=== PATIENT | female | born 1955 | race Caucasian/White ===

== ENCOUNTER → 2016-12-31 | Outpatient (CLI) | payer BC ==
[~2016-12-31] MED LIST: FLUO20CA35 PO; PRAM1TAB52 PO; PRT40 PO; WLLSR150 PO
[2016-12-31 09:56] LABS: ESTIMATED AVERAGE GLUCOSE 108 mg/dl; HA1C FLAG Normal (Normal)
[2016-12-31 10:06] LABS: ALT/SGPT 28 U/L (12-78); BLOOD UREA NITROGEN 12 mg/dl (7-18); BUN/CREATININE RATIO 13.9 (10-20); CARBON DIOXIDE 27 mmol/L (21-32); CHLORIDE 109 mmol/L (98-107); CHOLESTEROL 228 mg/dl (0-200); CREATININE 0.88 mg/dl (0.60-1.20); GLUCOSE 96 mg/dl (70-99); POTASSIUM 3.9 mmol/L (3.5-5.1); SODIUM 145 mmol/L (136-145); TRIGLYCERIDES 237 mg/dl (0-150); VERY LOW DENSITY LIPOPROT CALC 47 mg/dl
[2016-12-31 10:09] LABS: ALKALINE PHOSPHATASE 77 U/L (45-117); AST/SGOT 15 U/L (15-37); CALCIUM 8.5 mg/dl (8.5-10.1); CHOLESTEROL/HDL RATIO 3.9; HDL CHOLESTEROL 58 mg/dl; LDL CHOLESTEROL CALCULATED 123 mg/dl
== END | disposition home or self-care (01) ==
LOC: C.LAB 07:16
PROVIDERS: ATTEND Internal Medicine
DX: M15.9 Polyosteoarthritis, unspecified (principal); Z11.59 Encounter for screening for other viral diseases

== ENCOUNTER → 2017-05-19 | Outpatient (CLI) | payer BC | END | disposition home or self-care (01) | LOC: C.PAPS 13:39 | PROVIDERS: ATTEND Obstetrics & Gynecology | DX: Z01.411 Encounter for gynecological examination (general) (routine) with abnormal findings (principal); R87.610 Atypical squamous cells of undetermined significance on cytologic smear of cervix (ASC-US) ==

== ENCOUNTER 2020-04-03 22:28 | Observation (INO) ==
[2020-04-03] MEDS ORDERED: ALBUT/IPRATROP 3MG/0.5MG NEB 3 ML VIAL NEB STA (22:42)
[2020-04-03 22:59] LABS: Basophils # (auto) 0.03 K/uL (0-0.2); Basophils % (auto) 0.3 %; Eosinophils # (auto) 0.22 K/uL (0-0.5); Hematocrit (blood only) 43.2 % (37-47); Hemoglobin 14.7 g/dL (12.0-16.0); Immature Granulocytes # (auto) 0.01 K/uL (0.00-0.02); Immature Granulocytes % (auto) 0.1 %; Lymphocytes # (auto) 4.55 K/uL (1.2-3.4); Lymphocytes % (auto) 40.8 %; Mean Corpuscular Hemoglobin 31.4 pg (25-34); Mean Corpuscular Volume 92.3 fL (80-100); Mean Platelet Volume 9.6 fL (7.4-10.4); Monocytes # (auto) 0.57 K/uL (0.11-0.59); Monocytes % (auto) 5.1 %; Neutrophils # (auto) 5.78 K/uL (1.4-6.5); Neutrophils % (auto) 51.7 %; Platelet Count 330 K/uL (130-400); RDW Standard Deviation 43.8 fL (36.4-46.3); Red Blood Count 4.68 M/uL (4.2-5.4); White Blood Count 11.16 K/uL (4.8-10.8)
[2020-04-03 23:16] LABS: D Dimer < 190 ug/L FEU (0-500); Partial Thromboplastin Ratio 0.9; Partial Thromboplastin Time 24.9 Seconds (21.0-31.0); Prothrombin Time 10.3 Seconds (9.0-12.0)
[2020-04-03 23:22] LABS: Alanine Aminotransferase 31 U/L (12-78); Albumin Globulin Ratio 0.9 (0.9-2); Albumin Level 3.7 gm/dl (3.4-5.0); Alkaline Phosphatase 81 U/L (45-117); Aspartate Aminotransferase 22 U/L (15-37); BUN Creatinine Ratio 11.1 (10-20); Bilirubin,Total 0.4 mg/dl (0.2-1); Blood Urea Nitrogen 13 mg/dl (7-18); Carbon Dioxide 21 mmol/L (21-32); Chloride 109 mmol/L (98-107); Est GFR (African American) 57.2; Est GFR (Non-African American) 49.4; Glucose 103 mg/dl (70-99); Potassium 3.6 mmol/L (3.5-5.1); Sodium 141 mmol/L (136-145); Total Protein 7.7 gm/dl (6.4-8.2); Troponin I < 0.015 ng/ml (0-0.045)
[2020-04-03] MEDS ORDERED: OPTIRAY 320 125ml IV ONE (23:23)
--- NOTE | 2020-04-03 23:34 | Emergency Department Note ---
History of Present Illness General Chief complaint: Chest Pain Stated complaint: sob, chest pain Time Seen by Provider: 04/03/20 22:34 Source: patient Mode of arrival: ambulatory Limitations: no limitations History of Present Illness Maximum Pain Intensity: 8 This patient is a 64-year-old female who presents the emergency department for evaluation of shortness of breath. Patient states that she had an acute onset of shortness of breath 1.5 hours ago. She was home with her and friends and had been drinking vodka and hard cider. She states that she was sitting with friends and began feeling short of breath. She states that she does have some pain in the center of her chest and feels like she is not able to take a full breath. She has been hyperventilating. She rates her discomfort an 8/10. She denies any history of asthma, COPD or other pulmonary disease. She is a smoker. She denies any recent travel. She denies leg pain or swelling. Home Medications Home Medications Medication Instructions Recorded Confirmed Type [id number] 0.4 mg-calcium 162 1 tab PO QAM 02/12/19 04/03/20 History mg-iron 18 [id number] tablet lorazepam 0.25 - 0.5 mg PO DAILY PRN 09/05/19 04/03/20 History triamcinolone acetonide 1 appln TOP DAILY PRN 09/05/19 04/03/20 History pramipexole 0.25 mg tablet 0.25 mg PO HS #90 tab 09/11/19 04/03/20 Rx gabapentin 300 mg capsule 300 mg PO BID #60 cap 01/09/20 04/03/20 Rx bupropion HCl 150 mg 24 hr tablet, 150 mg PO BID #60 tab 02/25/20 04/03/20 Rx extended release fluoxetine 20 mg capsule 20 mg PO BID #60 cap 03/04/20 04/03/20 Rx hydrocodone 5 mg-acetaminophen 325 1 tab PO Q12 PRN #15 tab 03/05/20 04/03/20 Rx mg tablet pantoprazole 40 mg tablet,delayed 40 mg PO Q OTHER DAY #45 tab 03/26/20 04/03/20 Rx release Allergies Allergy/AdvReac Type Severity Reaction Status Date / Time latex Allergy Mild Rash Verified 04/03/20 23:40 Past Med/Surg History Medical History Adenocarcinoma, colon Anxiety Cervical radiculopathy Right C6 Chronic low back pain Depression Dermatitis, dyshidrotic Esophageal spasm Generalized osteoarthritis GERD (gastroesophageal reflux disease) History of colon cancer diagnosed 1995--Status post chemoradiation and partial colectomy History of kidney stones History of peptic ulcer age 24 History of radiation therapy Hyperlipidemia Lumbar facet joint syndrome Lumbar radiculopathy Lumbar spinal stenosis Mild L4-5 Lumbar spondylosis Restless leg syndrome Sacroiliitis Surgical History History of colonoscopy with polypectomy History of colposcopy with cervical biopsy History of esophagogastroduodenoscopy (EGD) History of lithotripsy History of partial colectomy 1995 @ [facility] 10 inches removed History of right oophorectomy History of tooth extraction History of tubal ligation Status post right foot surgery Family History Father Acquired amyotrophic lateral sclerosis Family hx colonic polyps Mother Hypertension Grandmother (Maternal) Family history of diabetes mellitus Other No family history of adverse response to anesthesia Denies family history of Ovarian cancer Prostate cancer Breast cancer Lung cancer Colorectal cancer Social History Smoking Status: Current every day smoker Age Started Using Tobacco: 20; packs per day: 0.5; Cigarettes Per Day: 10; Second Hand Exposure: Yes; Hx Alcohol Use: Yes Alcohol type: hard liquor Hx Substance Use: No Preferred Language: Lithuanian Communication Ability: Effective Visual Impairment: No Limitations Hearing Ability: Normal Loader Magazine Grinder Required: No Beliefs That Will Affect Care: None marital status: Current Living Situation: Spouse Current Living Situation Comment: Lives with and daughter current occupational status: employed 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 Safe at Home: Yes Review of Systems A total of 10 systems reviewed and were otherwise negative Physical Exam Vital Signs Vital Signs - 24 hr 04/03/20 22:29 04/03/20 22:53 04/03/20 23:47 Temperature 36.9 C Temperature Source Oral Pulse Rate 102 H Pulse Rate [Apical] 80 73 Pulse Rhythm Regular Pulse Rhythm [Apical] Regular Pulse Strength Normal Pulse Strength [Apical] Normal Respiratory Rate 26 H 22 23 Respiratory Effort / Characteristics Spontaneous Labored Short of Breath Respiratory Pattern Regular Blood Pressure 139/72 Blood Pressure [Right Arm] 125/70 136/67 Blood Pressure Mean 94 Blood Pressure Mean [Right Arm] 88 90 Blood Pressure Position Sitting Pulse Oximetry 89 L 90 96 Oxygen Delivery Method Room Air Nasal Cannula Nasal Cannula Oxygen Flow Rate 5 5 Sepsis Recent Fever Within 48 Hours No Sepsis New/Unexplained Change in Mental Status No Sepsis Action Taken by Nursing No Action Required 04/04/20 00:00 04/04/20 00:11 04/04/20 00:46 Temperature Temperature Source Pulse Rate Pulse Rate [Apical] 69 82 Pulse Rhythm Pulse Rhythm [Apical] Pulse Strength Pulse Strength [Apical] Respiratory Rate 16 18 Respiratory Effort / Characteristics Labored Non-Labored Spontaneous Respiratory Pattern Blood Pressure Blood Pressure [Right Arm] Blood Pressure Mean Blood Pressure Mean [Right Arm] Blood Pressure Position Pulse Oximetry 97 96 Oxygen Delivery Method Nasal Cannula Nasal Cannula Oxygen Flow Rate 5 5 Sepsis Recent Fever Within 48 Hours Sepsis New/Unexplained Change in Mental Status Sepsis Action Taken by Nursing 04/04/20 01:27 04/04/20 01:30 04/04/20 02:00 Temperature Temperature Source Pulse Rate Pulse Rate [Apical] 91 H 87 Pulse Rhythm Pulse Rhythm [Apical] Pulse Strength Pulse Strength [Apical] Respiratory Rate 18 18 Respiratory Effort / Characteristics Respiratory Pattern Blood Pressure Blood Pressure [Right Arm] 114/64 109/63 Blood Pressure Mean Blood Pressure Mean [Right Arm] 80 78 Blood Pressure Position Pulse Oximetry 92 88 L 95 Oxygen Delivery Method Room Air Room Air Nasal Cannula Oxygen Flow Rate 2 Sepsis Recent Fever Within 48 Hours Sepsis New/Unexplained Change in Mental Status Sepsis Action Taken by Nursing VITALS: Vitals are noted on the nurse's note and reviewed by myself. GENERAL: This is a 64-year-old female, sitting up in bed, in moderate distress, hyperventilating. SKIN: The skin was without rashes. EARS: External auditory canals clear, tympanic membranes pearly tadeo without erythema or effusion bilaterally. EYES: Pupils equal round and reactive to light and accommodation. NOSE: Patent, turbinates without inflammation or discharge. No sinus tenderness. MOUTH: Mucous membranes moist. Tonsils are not enlarged. Pharynx without erythema or exudate. NECK: Supple without nuchal rigidity. No lymphadenopathy. HEART: Regular rate and rhythm without murmurs gallops or rubs. LUNGS: Tachypneic, decreased breath sounds throughout with mild expiratory wheezes in the bases. ABDOMEN: Positive bowel sounds x 4. Soft, nontender to palpation. EXTREMITIES: No swelling or calf tenderness. NEURO: Patient was alert and oriented to person place and time. Course Reevaluation(s) Reevaluation #1: Patient was reevaluated and reported she was feeling slightly better after the DuoNeb. Her oxygen saturations remain at 90 to 92% on 5 L. Reevaluation #2: Patient was reevaluated after the hour-long DuoNeb and is feeling better. Oxygen saturations are between 90 to 93% on 5 L. Administered Medications Discontinued Medications Albuterol (Albut/Ipratrop 3mg/0.5mg Neb 3 Ml Vial) 3 ml NEB NOW STA Stop: 04/03/20 22:43 Last Admin: 04/03/20 22:53 Dose: 3 ml Documented by: [id number] Albuterol (Albut/Ipratrop 3mg/0.5mg Neb 3 Ml Vial) 12 ml NEB ONE ONE Stop: 04/03/20 23:59 Last Admin: 04/04/20 00:11 Dose: 12 ml Documented by: [id number] Ioversol (Optiray 320 125ml) 120 ml IV ONCE ONE Stop: 04/03/20 23:24 Last Admin: 04/03/20 23:23 Dose: 120 ml Documented by: [id number] Ketorolac Tromethamine (Ketorolac Tromethamine 15 Mg/Ml Vial) 15 mg IV NOW STA Stop: 04/03/20 23:40 Last Admin: 04/03/20 23:46 Dose: 15 mg Documented by: [id number] Methylprednisolone (Methylprednisolone 125 Mg/2 Ml Vial) 125 mg IV NOW STA Stop: 04/03/20 23:59 Last Admin: 04/04/20 00:19 Dose: 125 mg Documented by: [id number] Pramipexole Dihydrochloride (Pramipexole Dihydrochlo 0.25 Mg Tab) 0.25 mg PO NOW STA Stop: 04/04/20 00:11 Last Admin: 04/04/20 00:45 Dose: 0.25 mg Documented by: [id number] Medical Decision Making Differential Diagnosis Reactive airway disease, pneumonia, pneumothorax, COPD, CHF, infections, cardiac ischemia, pulmonary embolism, musculoskeletal, gastrointestinal, as well as other pathologies. Home Medications Current Medication List: was personally reviewed by [email or web address] Laboratory Data Attestation: I reviewed the patient's lab results. Result diagrams: 04/03/20 22:48 04/03/20 22:48 Lab Results 04/03/20 04/03/20 04/03/20 Range/Units 22:48 22:48 22:48 WBC 11.16 H (4.8-10.8) K/uL RBC 4.68 (4.2-5.4) M/uL Hgb 14.7 (12.0-16.0) g/dL Hct 43.2 (37-47) % MCV 92.3 (80-100) fL MCH 31.4 (25-34) pg MCHC 34.0 (32-36) g/dL RDW Std Deviation 43.8 (36.4-46.3) fL RDW Coeff of Terra 13.0 (11.5-14.5) % Plt Count 330 (130-400) K/uL MPV 9.6 (7.4-10.4) fL Immature Gran % (Auto) 0.1 % Neut % (Auto) 51.7 % Lymph % (Auto) 40.8 % Jewell % (Auto) 5.1 % Eos % (Auto) 2.0 % Baso % (Auto) 0.3 % Neut # (Auto) 5.78 (1.4-6.5) K/uL Lymph # (Auto) 4.55 H (1.2-3.4) K/uL Jewell # (Auto) 0.57 (0.11-0.59) K/uL Eos # (Auto) 0.22 (0-0.5) K/uL Baso # (Auto) 0.03 (0-0.2) K/uL Immature Gran # (Auto) 0.01 (0.00-0.02) K/uL PT 10.3 (9.0-12.0) Seconds INR 1.0 (0.9-1.1) APTT 24.9 (21.0-31.0) Seconds PTT Ratio 0.9 D-Dimer < 190 (0-500) ug/L FEU Sodium (136-145) mmol/L Potassium (3.5-5.1) mmol/L Chloride (98-107) mmol/L Carbon Dioxide (21-32) mmol/L Anion Gap (3-11) BUN (7-18) mg/dl Creatinine (0.6-1.2) mg/dl Est Cr Clr Drug Dosing Est GFR ( Amer) Est GFR (Non-Af Amer) BUN/Creatinine Ratio (10-20) Glucose (70-99) mg/dl Calcium (8.5-10.1) mg/dl Total Bilirubin (0.2-1) mg/dl AST (15-37) U/L ALT (12-78) U/L Alkaline Phosphatase (45-117) U/L Troponin I (0-0.045) ng/ml Total Protein (6.4-8.2) gm/dl Albumin (3.4-5.0) gm/dl Globulin (2.5-4.0) gm/dl Albumin/Globulin Ratio (0.9-2) Specimen Hemolysis Ethyl Alcohol mg/dL 190.3 H (0-3) mg/dl 04/03/20 Range/Units 22:48 WBC (4.8-10.8) K/uL RBC (4.2-5.4) M/uL Hgb (12.0-16.0) g/dL Hct (37-47) % MCV (80-100) fL MCH (25-34) pg MCHC (32-36) g/dL RDW Std Deviation (36.4-46.3) fL RDW Coeff of Terra (11.5-14.5) % Plt Count (130-400) K/uL MPV (7.4-10.4) fL Immature Gran % (Auto) % Neut % (Auto) % Lymph % (Auto) % Jewell % (Auto) % Eos % (Auto) % Baso % (Auto) % Neut # (Auto) (1.4-6.5) K/uL Lymph # (Auto) (1.2-3.4) K/uL Jewell # (Auto) (0.11-0.59) K/uL Eos # (Auto) (0-0.5) K/uL Baso # (Auto) (0-0.2) K/uL Immature Gran # (Auto) (0.00-0.02) K/uL PT (9.0-12.0) Seconds INR (0.9-1.1) APTT (21.0-31.0) Seconds PTT Ratio D-Dimer (0-500) ug/L FEU Sodium 141 (136-145) mmol/L Potassium 3.6 (3.5-5.1) mmol/L Chloride 109 H (98-107) mmol/L Carbon Dioxide 21 (21-32) mmol/L Anion Gap 11.0 (3-11) BUN 13 (7-18) mg/dl Creatinine 1.18 (0.6-1.2) mg/dl Est Cr Clr Drug Dosing Not Reportable Est GFR ( Amer) 57.2 Est GFR (Non-Af Amer) 49.4 BUN/Creatinine Ratio 11.1 (10-20) Glucose 103 H (70-99) mg/dl Calcium 9.0 (8.5-10.1) mg/dl Total Bilirubin 0.4 (0.2-1) mg/dl AST 22 (15-37) U/L ALT 31 (12-78) U/L Alkaline Phosphatase 81 (45-117) U/L Troponin I < 0.015 (0-0.045) ng/ml Total Protein 7.7 (6.4-8.2) gm/dl Albumin 3.7 (3.4-5.0) gm/dl Globulin 4.0 (2.5-4.0) gm/dl Albumin/Globulin Ratio 0.9 (0.9-2) Specimen Hemolysis Ethyl Alcohol mg/dL (0-3) mg/dl Imaging Data Attestation: I personally reviewed and interpreted this imaging study as follows: My Impression: CHEST 1 VIEW: Possible free air under the diaphragm vs bowel. No pulmonary consolidation or pneumothorax. Radiologist's Impression: CTA CHEST: No thoracic aortic aneurysm or dissection. No acute pulmonary embolism. Normal heart size. No pericardial effusion. Clear lungs. No acute osseous findings. CT ABDOMEN & PELVIS With Contrast: No evidence of free air. Slight hydronephrosis of the left kidney, of uncertain clinical significance. No visible obstructing radiopaque stone. Question punctate nonobstructing left kidney lower pole stone. Small left kidney cysts. Nonobstructing right kidney stone. No right-sided hydronephrosis. Liver, gallbladder, spleen, pancreas, adrenal glands are unremarkable. Appendix not identified. No bowel obstruction or inflammation. Urinary bladder and uterus are unremarkable. No acute osseous findings. Radiologist: Aundrea Javier M.D. ECG Data Attestation: I personally reviewed and interpreted this ECG as follows: Indication: + SOB/dyspnea Rate (beats per minute): 63 Rhythm: + normal sinus ECG Intervals/blocks: + Normal QRS ECG ST segments: + Normal ST segments Change: no significant change Blood Pressure Blood Pressure Findings: Elevated blood pressure Blood Pressure Disposition: elevated BP felt to be situational MDM Narrative Continuous alarm security or surveillance monitor: Order was placed for continuous alarm security or surveillance monitor. Patient was placed on the alarm security or surveillance monitor. Patient was noted to be in normal sinus rhythm at an initial rate of 85 bpm. The patient is a 64-year-old female who presents today complaining of acute onset of shortness of breath and chest pain. Patient hypoxic on arrival with oxygen saturations 87% on room air. Labs revealed minimal leukocytosis, no anemia or concerning electrolyte abnormalities. Troponin was not elevated. Chest x-ray with questionable free air under the diaphragm versus bowel. Given patient's significant shortness of breath, CT of the chest as well as abdomen/pelvis were performed with no acute findings. Patient with some improvement after DuoNeb, but saturations remained in the low 90s on 5 L via nasal cannula. [facility] who agreed to evaluate the patient for further care. Impression & Plan Shortness of breath, Hypoxia Discharge Plan Visit Data Chief Complaint: Chest Pain Stated Complaint: sob, chest pain ED Provider: Juan Manuel Diane ED Midlevel Provider: Berenice Nation Discharge Problem: Shortness of breath, Hypoxia Patient Disposition: Admitted As Inpatient Discharge Instructions Interventions: ED Discharge Assessment Last Done: 04/04/20 02:41
[2020-04-03] MEDS ORDERED: KETOROLAC TROMETHAMINE 15 MG/ML VIAL IV STA (23:39)
[2020-04-03] MEDS ORDERED: methylPREDNISolone 125 MG/2 ML VIAL IV STA (23:58)
[2020-04-03] MEDS ORDERED: ALBUT/IPRATROP 3MG/0.5MG NEB 3 ML VIAL NEB ONE (23:58)
[2020-04-04] MEDS ORDERED: PRAMIPEXOLE DIHYDROCHLO 0.25 MG TAB PO STA (00:10)
--- NOTE | 2020-04-04 02:37 | History & Physical Report ---
Date of Service April 04, 2020 Assessment & Plan (1) Shortness of breath: Acute shortness of breath- The patient will be admitted to telemetry for serial cardiac enzymes, serial EKG's, cardiac rhythm monitoring and a 2-D echocardiogram with Dopplers. Differential includes cardiac, bronchospasm, esophageal spasm, peptic ulcer disease, gastritis. Patient has been diagnosed with esophageal spasm and duodenal ulcer in the past. Potential GI effects may be exacerbated by ingestion of hard cider and alcohol as she had this evening. Present on Admission?: Yes (2) Hyperlipidemia: On no specific treatment at this time. Check a fasting lipid panel and a hemoglobin A1c Present on Admission?: Yes (3) Restless legs syndrome: Continue pramipexole 0.25 mg p.o. at bedtime Present on Admission?: Yes (4) Current smoker: Tobacco cessation discussed and recommended Present on Admission?: Yes (5) Depression: Anxiety/adult situational stress disorder/depression- Continue bupropion extended release 150 mg p.o. twice daily, fluoxetine 20 mg p.o. twice daily, gabapentin 300 mg p.o. twice daily and Lorazepam as needed Present on Admission?: Yes (6) Adult situational stress disorder: See above Present on Admission?: Yes (7) Anxiety: See above Present on Admission?: Yes (8) GERD (gastroesophageal reflux disease): GERD/history of esophageal spasm- Continue pantoprazole 40 mg every other day Present on Admission?: Yes (9) Esophageal spasm: History of Present Illness Chief Complaint: The patient presents to the emergency department with complaint of acute onset of shortness of breath Primary Care Provider: Guevara Abrams MD The patient is a 64-year-old female with a past medical history including lumbar radiculopathy, cervical radiculopathy, migraine, hyperlipidemia, restless leg syndrome, tobacco use disorder, plantar fascial fibromatosis, impaired fasting glucose, depression, generalized osteoarthritis, chronic low back pain, chronic diarrhea, adult situational stress disorder, lumbar facet syndrome, lumbar spinal stenosis, anxiety and history of colon cancer. She reports that earlier this evening, she was out on the deck of her friend's house, where she was drinking hard cider and vodka, and without when he became acutely short of breath. She felt like she was unable to take a full breath, and began to hyperventilate. She has only ever had to use an inhaler during episode of bronchitis. She has no allergies or history of asthma. She had a episode of esophageal spasm that was diagnosed upon presentation to the emergency department in the past with similar type of symptoms along with chest tightness. Allergies Allergy/AdvReac Type Severity Reaction Status Date / Time latex Allergy Mild Rash Verified 04/03/20 23:40 Home Medications Home Medications Medication Instructions Recorded Confirmed Type [id number] 0.4 mg-calcium 162 1 tab PO QAM 02/12/19 04/03/20 History mg-iron 18 [id number] tablet lorazepam 0.25 - 0.5 mg PO DAILY PRN 09/05/19 04/03/20 History triamcinolone acetonide 1 appln TOP DAILY PRN 09/05/19 04/03/20 History pramipexole 0.25 mg tablet 0.25 mg PO HS #90 tab 09/11/19 04/03/20 Rx gabapentin 300 mg capsule 300 mg PO BID #60 cap 01/09/20 04/03/20 Rx bupropion HCl 150 mg 24 hr tablet, 150 mg PO BID #60 tab 02/25/20 04/03/20 Rx extended release fluoxetine 20 mg capsule 20 mg PO BID #60 cap 03/04/20 04/03/20 Rx hydrocodone 5 mg-acetaminophen 325 1 tab PO Q12 PRN #15 tab 03/05/20 04/03/20 Rx mg tablet pantoprazole 40 mg tablet,delayed 40 mg PO Q OTHER DAY #45 tab 03/26/20 04/03/20 Rx release Past Med/Surg History Medical History Adenocarcinoma, colon Anxiety Cervical radiculopathy Right C6 Chronic low back pain Depression Dermatitis, dyshidrotic Generalized osteoarthritis History of colon cancer diagnosed 1995--Status post chemoradiation and partial colectomy History of kidney stones History of peptic ulcer age 24 History of radiation therapy Hyperlipidemia Lumbar facet joint syndrome Lumbar radiculopathy Lumbar spinal stenosis Mild L4-5 Lumbar spondylosis Restless leg syndrome Sacroiliitis Surgical History History of colonoscopy with polypectomy History of colposcopy with cervical biopsy History of esophagogastroduodenoscopy (EGD) History of lithotripsy History of partial colectomy 1995 @ [facility] 10 inches removed History of right oophorectomy History of tooth extraction History of tubal ligation Status post right foot surgery Family History Father Acquired amyotrophic lateral sclerosis Family hx colonic polyps Mother Hypertension Grandmother (Maternal) Family history of diabetes mellitus Other No family history of adverse response to anesthesia Denies family history of Ovarian cancer Prostate cancer Breast cancer Lung cancer Colorectal cancer Social History Smoking Status: Current every day smoker Age Started Using Tobacco: 20; packs per day: 0.5; Cigarettes Per Day: 10 a day; Second Hand Exposure: Yes; Hx Alcohol Use: Yes (several times/week) Alcohol type: wine and hard liquor Hx Substance Use: No Preferred Language: Bahamian Communication Ability: Effective Visual Impairment: No Limitations Hearing Ability: Normal Hide Worker Required: No Beliefs That Will Affect Care: None marital status: Current Living Situation: Spouse Current Living Situation Comment: Lives with and daughter current occupational status: employed 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 The review of systems is otherwise negative other than for that already noted above, and at least 10 systems have been reviewed. Physical Exam Physical Exam: The patient is awake, alert and oriented 3, well developed and well nourished, normocephalic and atraumatic, lying in bed and in no acute distress. HEENT--PERRL, EOMI, mucous membranes and oropharynx normal. Neck--supple. No JVD. No bruits. Thyroid normal, trachea midline, no adenopathy. Heart--normal S1 and S2. No murmurs, rubs or gallops. Lungs--clear bilaterally, no respiratory distress, no accessory muscle use. Abdomen--normal bowel sounds and soft. Nontender. Nondistended. Obese. Extremities--no cyanosis or clubbing. No edema. Dermatologic--normal skin turgor, normal color, no abnormal lymph nodes, no rash. Neurologic--cranial nerves II through XII grossly intact. Rheumatologic--normal range of motion. Psychiatric--normal affect. Results & Data Results & Data ([facility]) Vital Signs (Past 12 Hours) Vital Signs Temp Pulse Pulse Resp BP BP Pulse Ox 04/04/20 02:00 87 18 109/63 95 04/04/20 01:30 91 H 18 114/64 88 L 04/04/20 01:27 92 04/04/20 00:46 82 18 96 04/04/20 00:11 69 16 97 04/03/20 23:47 73 23 136/67 96 04/03/20 22:53 80 22 125/70 90 04/03/20 22:29 98.4 F 102 H 26 H 139/72 89 L Laboratory Results Laboratory Results WBC 11.16 K/uL (4.8-10.8) H 04/03/20 22:48 RBC 4.68 M/uL (4.2-5.4) 04/03/20 22:48 Hgb 14.7 g/dL (12.0-16.0) 04/03/20 22:48 Hct 43.2 % (37-47) 04/03/20 22:48 MCV 92.3 fL (80-100) 04/03/20 22:48 MCH 31.4 pg (25-34) 04/03/20 22:48 MCHC 34.0 g/dL (32-36) 04/03/20 22:48 RDW Std Deviation 43.8 fL (36.4-46.3) 04/03/20 22:48 RDW Coeff of Terra 13.0 % (11.5-14.5) 04/03/20 22:48 Plt Count 330 K/uL (130-400) 04/03/20 22:48 MPV 9.6 fL (7.4-10.4) 04/03/20 22:48 Immature Gran % (Auto) 0.1 % 04/03/20 22:48 Neut % (Auto) 51.7 % 04/03/20 22:48 Lymph % (Auto) 40.8 % 04/03/20 22:48 [place] % (Auto) 5.1 % 04/03/20 22:48 Eos % (Auto) 2.0 % 04/03/20 22:48 Baso % (Auto) 0.3 % 04/03/20 22:48 Neut # (Auto) 5.78 K/uL (1.4-6.5) 04/03/20 22:48 Lymph # (Auto) 4.55 K/uL (1.2-3.4) H 04/03/20 22:48 [place] # (Auto) 0.57 K/uL (0.11-0.59) 04/03/20 22:48 Eos # (Auto) 0.22 K/uL (0-0.5) 04/03/20 22:48 Baso # (Auto) 0.03 K/uL (0-0.2) 04/03/20 22:48 Immature Gran # (Auto) 0.01 K/uL (0.00-0.02) 04/03/20 22:48 PT 10.3 Seconds (9.0-12.0) 04/03/20 22:48 INR 1.0 (0.9-1.1) 04/03/20 22:48 APTT 24.9 Seconds (21.0-31.0) 04/03/20 22:48 PTT Ratio 0.9 04/03/20 22:48 D-Dimer < 190 ug/L FEU (0-500) 04/03/20 22:48 Sodium 141 mmol/L (136-145) 04/03/20 22:48 Potassium 3.6 mmol/L (3.5-5.1) 04/03/20 22:48 Chloride 109 mmol/L (98-107) H 04/03/20 22:48 Carbon Dioxide 21 mmol/L (21-32) 04/03/20 22:48 Anion Gap 11.0 (3-11) 04/03/20 22:48 BUN 13 mg/dl (7-18) 04/03/20 22:48 Creatinine 1.18 mg/dl (0.6-1.2) 04/03/20 22:48 Est Cr Clr Drug Dosing Not Reportable 04/03/20 22:48 Est GFR ( Amer) 57.2 04/03/20 22:48 Est GFR (Non-Af Amer) 49.4 04/03/20 22:48 BUN/Creatinine Ratio 11.1 (10-20) 04/03/20 22:48 Glucose 103 mg/dl (70-99) H 04/03/20 22:48 Calcium 9.0 mg/dl (8.5-10.1) 04/03/20 22:48 Total Bilirubin 0.4 mg/dl (0.2-1) 04/03/20 22:48 AST 22 U/L (15-37) 04/03/20 22:48 ALT 31 U/L (12-78) 04/03/20 22:48 Alkaline Phosphatase 81 U/L (45-117) 04/03/20 22:48 Troponin I < 0.015 ng/ml (0-0.045) 04/03/20 22:48 Total Protein 7.7 gm/dl (6.4-8.2) 04/03/20 22:48 Albumin 3.7 gm/dl (3.4-5.0) 04/03/20 22:48 Globulin 4.0 gm/dl (2.5-4.0) 04/03/20 22:48 Albumin/Globulin Ratio 0.9 (0.9-2) 04/03/20 22:48 Specimen Hemolysis 04/03/20 22:48 Ethyl Alcohol mg/dL 190.3 mg/dl (0-3) H 04/03/20 22:48 Diagnostic Findings [facility] Patient: LEON ORLANDO (Female) : 59 Status: ER Date: 04/03/20 23:37 Room #: History: SOB WITH PAIN IN CENTER OF CHEST Slices: [phone] Priors: Tech: Jonny Jones @ [phone] Exams: CTA CHEST Contrast: IV Amt: 119 ML OPTIRAY 320 Accession Numbers: [id number] Preliminary Findings Only See Final Report For Complete Findings CTA CHEST: No thoracic aortic aneurysm or dissection. No acute pulmonary embolism. Normal heart size. No pericardial effusion. Clear lungs. No acute osseous findings. Radiologist: Aundrea Javier M.D. Study ready at 23:54 and initial results transmitted at 23:57 *This report constitutes a preliminary interpretation only. Non-acute findings felt to be unrelated to the clinical presentation may not be discussed in this report. The study will be interpreted and a final report will be generated by the local Radiologist the following shift. To reach the hospital radiology department call [phone]. If a discrepancy is found between the preliminary and final interpretations of this study, please notify us via our Client Portal at [email or web address] can also fax this report with a description of the discrepancy, or include the final report, to our daytime fax number [phone].If faxing, please indicate the severity of discrepancy using one of the following categories: [ ] 1 - Agree/Informational [ ] 2 - Unlikely to Affect Management [ ] 3 - Possible Eventual Change of Management [ ] 4 - Probable Immediate Change of Management For all other patient related information, please fax us at [phone]. [facility] Patient: LEON ORLANDO (Female) : 59 Status: ER Date: 04/03/20 23:41 Room #: History: SOB WITH PAIN AT CENTER OF CHEST, R/O FREE AIR ABNORMAL CXR Slices: [phone] Priors: Ender: Karen Jonny @ [phone] Exams: CT ABDOMEN & PELVIS With Contrast Contrast: IV Amt: 119 ML OPTIRAY 320 Accession Numbers: [id number] Preliminary Findings Only See Final Report For Complete Findings CT ABDOMEN & PELVIS With Contrast: No evidence of free air. Slight hydronephrosis of the left kidney, of uncertain clinical significance. No visible obstructing radiopaque stone. Question punctate nonobstructing left kidney lower pole stone. Small left kidney cysts. Nonobstructing right kidney stone. No right-sided hydronephrosis. Liver, gallbladder, spleen, pancreas, adrenal glands are unremarkable. Appendix not identified. No bowel obstruction or inflammation. Urinary bladder and uterus are unremarkable. No acute osseous findings. Radiologist: Aundrea Javier M.D. Study ready at 23:54 and initial results transmitted at 00:01 *This report constitutes a preliminary interpretation only. Non-acute findings felt to be unrelated to the clinical presentation may not be discussed in this report. The study will be interpreted and a final report will be generated by the local Radiologist the following shift. To reach the hospital radiology department call [phone]. If a discrepancy is found between the preliminary and final interpretations of this study, please notify us via our Client Portal at [email or web address].You can also fax this report with a description of the discrepancy, or include the final report, to our daytime fax number [phone].If faxing, please indicate the severity of discrepancy using one of the following categories: [ ] 1 - Agree/Informational [ ] 2 - Unlikely to Affect Management [ ] 3 - Possible Eventual Change of Management [ ] 4 - Probable Immediate Change of Management For all other patient related information, please fax us at [phone]. [id number] Code Status & VTE Plan Code Status Full code VTE Prophylaxis Plan VTE Prophylaxis will be ordered: Yes PG Care Time/CCT Total # of Minutes Spent Total Time Spent with Patient: Total time spent is greater than 50% in coordination of care (as documented) at patient's floor/unit and/or counseling patient: Coding Level of Care Code 60276 OBS Care - Level 3 Diagnoses Shortness of breath R06.02 Hyperlipidemia E78.5 Restless legs syndrome G25.81 Current smoker F17.200 Depression F32.9 Adult situational stress disorder F43.20 Anxiety F41.9 GERD (gastroesophageal reflux disease) K21.9 Esophageal spasm K22.4
[2020-04-04] MEDS ORDERED: MAGNESIUM HYDROXIDE SUSP 30 ML UDC PO PRN (03:25)
[2020-04-04] MEDS ORDERED: ACETAMINOPHEN 325 MG TAB PO PRN (03:25)
[2020-04-04] MEDS ORDERED: ONDANSETRON INJ 2 MG/ML 2 ML VIAL IV PRN (03:25)
[2020-04-04] MEDS ORDERED: ALUMINUM/MAGNESIUM SUSP 30 ML UDC PO PRN (03:25)
[2020-04-04] MEDS ORDERED: HYDROCODONE/ACETAMOPHEN 5/325MG TAB PO PRN (03:46)
--- NOTE | 2020-04-04 06:27 | CT Scan Report ---
CT OF THE ABDOMEN AND PELVIS WITH CONTRAST CLINICAL HISTORY: shortness of breath, ?free air under diaphragm COMPARISON STUDY: CT of the abdomen and pelvis June 10, 2009. TECHNIQUE: Following IV administration of 120 mL of Optiray-320, axial images of the abdomen and pelv is were obtained from the lung bases to the proximal femurs. Images were reviewed in the axial, sagit selma, and coronal planes. IV contrast was administered without complication. Automated exposure contr ol was utilized for the study. A dose lowering technique was utilized adhering to the principles of ALARA. FINDINGS: Please note that the chest CT will be reported separately. No pneumatosis, free air or port al venous gas is present. A few renal cysts are noted. Multiple subcentimeter renal lesions are too s mall to characterize. Mild left collecting system dilatation. No ureteral calculi are identified. Not e is made of a 7 mm right renal calculus. There are no ureteral calculi. There is a punctate calculus within the lower pole of the left kidney. The liver, spleen, adrenal glands and pancreas are unremar kable. No peripancreatic or pericholecystic infiltration is noted. There is no evidence for a bowel o bstruction. The appendix is normal. There is no ascites or lymphadenopathy. Presacral infiltration is unchanged since CT of June 10, 2009. No suspicious osseous lesions are present. Bladder is mildl y distended. Major vasculature is patent. IMPRESSION: 1. No acute process within the abdomen or pelvis. No free air. 2. Presacral infiltration which is unchanged since CT of June 10, 2009. 3. Bilateral nephrolithiasis. Mild left collecting system dilatation with no ureteral calculi identif ied. ACT 112: Negative or not required by law. Electronically signed by: Serafin Singh M.D. 04/04/2020 6:26 AM
--- NOTE | 2020-04-04 06:34 | XRay Report ---
XR chest 1V portable CLINICAL HISTORY: Dyspnea COMPARISON STUDY: Chest radiograph December 29, 2017. Chest CT May 24, 2016. FINDINGS: Lung volumes are normal. Lungs are clear. There is no pneumothorax or pleural effusion. Car diac size is normal. Mediastinal contours are normal. There is no evidence for pulmonary edema. IMPRESSION: No acute cardiopulmonary findings. ACT 112: Negative or not required by law. Electronically signed by: Serafin Singh M.D. 04/04/2020 6:33 AM
[2020-04-04 06:56] LABS: Estimated Average Glucose 103 mg/dl; Hemoglobin A1C 5.2 % (4.5-5.6)
[2020-04-04 07:23] LABS: Albumin Level 3.5 gm/dl (3.4-5.0); BUN Creatinine Ratio 12.6 (10-20); Blood Urea Nitrogen 13 mg/dl (7-18); Calcium 8.8 mg/dl (8.5-10.1); Carbon Dioxide 24 mmol/L (21-32); Chloride 108 mmol/L (98-107); Est GFR (African American) 64.4; Est GFR (Non-African American) 55.6; Glucose 136 mg/dl (70-99); Potassium 4.4 mmol/L (3.5-5.1); Sodium 139 mmol/L (136-145)
[2020-04-04 07:28] LABS: Chol HDL Ratio 4; Cholesterol 241 mg/dl (0-200); HDL Cholesterol 61 mg/dl; LDL Cholesterol Calculated 143 mg/dl; Phosphorus 2.4 mg/dl (2.5-4.9); Triglycerides 185 mg/dl (0-150); Troponin I < 0.015 ng/ml (0-0.045); VLDL Cholesterol 37 mg/dl
--- NOTE | 2020-04-04 07:45 | CT Scan Report ---
CHEST CTA for PULMONARY ARTERIES CT DOSE: 1687.77 mGy.cm HISTORY: shortness of breath, hypoxia TECHNIQUE: Multiaxial CT images of the chest were performed following the intravenous administration of contrast to evaluate the pulmonary arteries. Maximal intensity projection images were also obtaine d. A dose lowering technique was utilized adhering to the principles of ALARA. COMPARISON STUDY: Chest CTA 05/25/2016. FINDINGS: Normal caliber thoracic aorta with no evidence for dissection. The heart is normal in size. No pleural or pericardial effusions. No filling defects within the pulmonary arteries to suggest pul monary embolus. The visualized liver, spleen, and adrenal glands are unremarkable. No mediastinal or hilar lymphadenopathy. Normal caliber esophagus. No suspicious lytic or blastic osseous lesions. No p neumothorax. The central airways are patent. A few scattered subpleural nodular densities, unchanged. These are likely benign. No new focal lung consolidations to suggest pneumonia. IMPRESSION: No evidence for pulmonary embolus. ACT 112: Negative or not required by law. Electronically signed by: Aaron Minaya M.D. 04/04/2020 7:44 AM
[2020-04-04] MEDS ORDERED: BuPROPion XL 150 MG TABCR PO SCH (09:00)
[2020-04-04] MEDS ORDERED: GABAPENTIN 300 MG CAP PO SCH (09:00)
[2020-04-04] MEDS ORDERED: MULTIVITAMIN TAB PO SCH (09:00)
[2020-04-04] MEDS ORDERED: FLUOXETINE HCL 20 MG CAP PO SCH (09:00)
--- NOTE | 2020-04-04 14:59 | Discharge Summary ---
Date of Service April 04, 2020 Admission HPI Per Admitting Provider The patient is a 64-year-old female with a past medical history including lumbar radiculopathy, cervical radiculopathy, migraine, hyperlipidemia, restless leg syndrome, tobacco use disorder, plantar fascial fibromatosis, impaired fasting glucose, depression, generalized osteoarthritis, chronic low back pain, chronic diarrhea, adult situational stress disorder, lumbar facet syndrome, lumbar spinal stenosis, anxiety and history of colon cancer. She reports that earlier this evening, she was out on the deck of her friend's house, where she was drinking hard cider and vodka, and without when he became acutely short of breath. She felt like she was unable to take a full breath, and began to hyperventilate. She has only ever had to use an inhaler during episode of bronchitis. She has no allergies or history of asthma. She had a episode of esophageal spasm that was diagnosed upon presentation to the emergency department in the past with similar type of symptoms along with chest tightness. Admission Exam Per Admitting Provider The patient is awake, alert and oriented 3, well developed and well nourished, normocephalic and atraumatic, lying in bed and in no acute distress. HEENT--PERRL, EOMI, mucous membranes and oropharynx normal. Neck--supple. No JVD. No bruits. Thyroid normal, trachea midline, no adenopathy. Heart--normal S1 and S2. No murmurs, rubs or gallops. Lungs--clear bilaterally, no respiratory distress, no accessory muscle use. Abdomen--normal bowel sounds and soft. Nontender. Nondistended. Obese. Extremities--no cyanosis or clubbing. No edema. Dermatologic--normal skin turgor, normal color, no abnormal lymph nodes, no rash. Neurologic--cranial nerves II through XII grossly intact. Rheumatologic--normal range of motion. Psychiatric--normal affect. Principal Diagnosis Shortness of breath Discharge Exam General: No acute distress HEENT: Normocephalic atraumatic Neck: Trachea midline, normal to visual inspection Cardiac: Palpated pulse, normal rate, normal rhythm Respiratory: She is able to take 5 deep breaths with some coughing, said this is her baseline GI: Soft nontender MSK: Moves all extremities Neuro: Alert and oriented Psych: Calm and cooperative Discharge Data Allergies Allergy/AdvReac Type Severity Reaction Status Date / Time latex Allergy Mild Rash Verified 04/03/20 23:40 Consultations 04/04/20 03:25 Consult Case Management - Discharge Planning Routine Ordered Studies 04/03/20 23:12 CT abd pelvis IV con only Urgent CT angio chest PE protocol Urgent Hospital Course (1) Shortness of breath: Acute shortness of breath- Patient presented to the hospital with acute shortness of breath, was admitted to telemetry, had serial cardiac enzymes which were all negative, serial EKGs which were all normal sinus rhythm, cardiac monitoring was negative, there was not an echo performed. This most likely represents of a previously diagnosed esophageal spasm likely complicated by hard cider and vodka, she denies symptoms similar to her previous ulcer, she will be on work-up for ulcer symptoms. Patient reports feeling significantly better on the day of discharge and has had no similar symptoms since admission. There is some question as to whether or not her smoking status is led her to begin to develop COPD. To that extent we will obtain outpatient PFTs to further characterize her lung function. Obtain outpatient PFTs Follow-up with PCP. (2) Hyperlipidemia: Patient not on specific treatment for hyperlipidemia at the time other significant risk factors including elevated BMI of 32.6, smoker, impaired fasting glucose. Fasting labs were obtained demonstratingTriglyceride of 185, cholesterol 241, LDL of 143, HDL 61. ASCVD risk score 24% if include hypertension that is uncontrolled. If we assume normotensive at baseline this risk drops to 14%. Regardless based upon her risk profile, her presenting symptoms, and her recent history it is important that she obtain a stress test. This will be arranged for her on discharge, she should follow-up with her primary care provider afterwards to discuss further therapy. Primary care provider to consider addition of statin Primary care provider to consider diagnosis of hypertension and initiation of treatment -Hemoglobin A1c 5.2. (3) Restless legs syndrome: Continued pramipexole 0.25 mg p.o. at bedtime (4) Current smoker: Counseled the patient extensively on the importance of tobacco cessation. There is a concern that she may have a component of COPD would lead to her current presentation. To that extent we will arrange for PFTs as an outpatient. -Established a semi-quit plan with the patient recommend PCP follow-up -Follow-up with outpatient PFTs (5) Depression: Continued bupropion extended release 150 mg p.o. twice daily, fluoxetine 20 mg p.o. twice daily, gabapentin 300 mg p.o. twice daily and Lorazepam as needed (6) Adult situational stress disorder: See above (7) Anxiety: See above (8) GERD (gastroesophageal reflux disease): Continued pantoprazole 40 mg every other day (9) Esophageal spasm: Patient with a history of esophageal spasm this may have also contributed to her presentation. Supportive care for now. Total Time Total Time Spent Total Time Spent (In Minutes): >30 Discharge Plan Discharge Items Patient Disposition: Home - Self-Care Reason For Visit: CHEST TIGHTNESS, SHORTNESS OF BREATH Discharge Diagnosis: Shortness of breath concerning for cardiac and or pulmonary etiology with a negative work-up Activity: Resume your previous activity Non-emergency contact: Primary Care Provider Call non-emergency contact if: you have any medication questions and your symptoms worsen Follow-up/Referrals: Guevara Abrams MD [Primary Care Provider] - Diet: Carb Consistent or DM2 Addtl Attending Provider Instructions: Care instructions: You were admitted to [facility] for treatment of shortness of breath. As we discussed your shortness of breath is likely multifactorial in nature and may be due to a number of things. To further characterize and delineate the cause of your symptoms we recommend you follow-up with your PCP in the next week and obtain outpatient studies to characterize your cardiac and lung function. We have provided the rn medicare with a prescription for the studies and request that you follow-up with the appointment for next week. Cardiac As we discussed your symptoms could be cardiac in nature, it was reassuring that during your admission, you had a negative cardiac work-up, this included serial cardiac enzymes, and serial EKGs, along with routine care. All of which were negative for any acute coronary syndrome or heart attack. Although all of the laboratory work was negative, there is a chance that you could have a component of coronary artery disease. To assess your risk we obtain fasting lipids (cholesterol) your total cholesterol was 241, your LDL or bad cholesterol was 143, your HDL or good cholesterol was 61, and your triglycerides were 185. We calculated your ASCVD risk score based upon your admission parameters and you had a 24% risk for a cardiac event in the next 10 years, if you treated your blood pressure this risk drops to 14%, if you were to stop smoking this risk drops to 7%. As you can clearly see it is in your best interest to stop smoking. Pulmonary We also discussed that your current presentation could be due to decreased lung function as result of chronic smoking and the development of COPD. To assess whether or not you have a degree of lung impairment we will be obtaining pulmonary function tests. We have provided the rn medicare with a prescription for this and she will be arranging for this test. We encourage you to obtain these test and follow-up with your PCP. If you were to stop smoking today you would significantly decrease your risk for further lung damage, and decrease the chances that you progress to a late stage of COPD. Smoking As we discussed smoking is extremely harmful to your health. It significantly compromise her cardiac function, and can affect your pulmonary function as well. To that extent the single best thing you can do for your health at this moment would be to quit smoking. The good news is we are here to help you. We discussed the numerous options and strategies to quit smoking on your day of discharge. We discussed getting rid of the cigarettes and getting rid of the lighters and any other smoking paraphernalia. We discussed medical therapy including the nicotine patch, and Chantix. Another resource to help you quit is to quit smoking helpline this can be reached at 1 800 Quit Now. You can do this and if you need additional assistance we are always here to help. Nutrition: You have previously carried the diagnosis of impaired fasting glucose, during this admission, your glucose was elevated to 136. We obtained a hemoglobin A1c which tracks her glucose over time which is 5.2 which is very near the upper limits of normal. We recommend he limit high carbohydrate foods, and fats from her diet. Recommend that you follow-up with your PCP regarding nutrition and weight management as these will likely aid in request to a healthy lifestyle. Hypertension: Throughout your admission you had high blood pressure. This is something you should follow-up with your primary care doctor about. If he determines that you do have high blood pressure you should begin antihypertensive medications. During admissions we have made no changes to your medication regimen however we recommend that you discuss the initiation of antihypertensives, statin therapy, and potentially inhaler therapy with your primary care provider. A discharge summary will be sent to your primary care physician to ensure continuity of care. Please bring this discharge summary with you to your next office appointment so that your provider can review it at that time. Follow-up appointments: - Keep all your follow-up appointments as already scheduled. If you cannot make an appointment, notify your provider. - Please call to request a follow-up appointment with your primary care physician within one week of discharge. Please let us know if you are unable to obtain an appointment Follow-up labs: - Please go to a lab nearest you and obtain the requested lab work. Please have this completed at least 3 hours before your doctor's appointment (or the day before your appointment if possible). Medications: - Your medication list has been reviewed and reconciled upon discharge to ensure accuracy and continuity of care. - You are provided with a list of all your current medications at this time. Please review this list closely and make note of any changes. - Please take all of your medications exactly as prescribed. - Tell your primary care provider if you cannot afford your medications. - Call your primary care provider if you are having any side effects or any other problems. - Call your primary care provider before taking any over the counter medications or supplements, including herbals and vitamins, because some of these may interact with your current medications and/or make your symptoms worse. Symptoms: Please call your primary care provider for symptoms including, but not limited to: fevers (temperatures greater than 100.4), chills, intractable nausea or vomiting, diarrhea, rash, shortness of breath, bleeding, pain, or if you experience any worsening of the symptoms that brought you to the hospital. For EMERGENCY and VERY SERIOUS health-related issues, such as chest pain, shortness of breath, or sudden onset of the symptoms that brought you to the hospital, you may need to call 911 or go directly to the Emergency Room It has been our privilege to take care of you during your hospital stay. And Above All Else Feel Better! Best Wishes, Adrien Viera MD PGY3 Resident, Family & Community Medicine [facility] F[facility] Residency at [facility] [address], [address] : [place] [address] Pending Studies at Discharge: No Stand-Alone Forms: [facility], Smoking Cessation Medications and DC Order Prescriptions: Continued gabapentin 300 mg capsule 300 mg PO BID Qty: 60 RF: 5 pramipexole [Mirapex] 0.25 mg tablet 0.25 mg PO HS Qty: 90 RF: 3 fluoxetine [Prozac] 20 mg capsule 20 mg PO BID Qty: 60 RF: 5 hydrocodone-acetaminophen 5-325 mg tablet 1 tab PO Q12 PRN (Reason: Pain) Qty: 15 RF: 0 bupropion HCl 150 mg tablet sustained-release 12 hr 150 mg PO BID Qty: 60 RF: 5 pantoprazole 40 mg tablet,delayed release (DR/EC) 40 mg PO Q OTHER DAY Qty: 45 RF: 3 xi-hti-ZY-Ii-Il-ccbhuen-lutein 0.4-162-18 mg tablet 1 tab PO QAM RF: 0 triamcinolone acetonide 0.1 % cream 1 appln TOP DAILY PRN (Reason: Rash) RF: 0 lorazepam 0.5 mg tablet 0.25 - 0.5 mg PO DAILY PRN (Reason: Anxiety) RF: 0 Discharge Orders: Discharge Order (Routine); Ordered 04/04/20 Ordered By: Adrien Viera Admission Data Admit Date/Time: 04/04/20 02:03 Attending Provider: Elvis Branch Admit Provider: Alli Ly Primary Care Provider: Guevara Abrams Other Providers: Alli Ly Supervising Physician Co-Signing Physician Notes I personally examined the patient and verified all [place]ud[place] points of history and exam, discussed case, and agree with decision making with Dr Viera. feeling ok now. had chest pressure and an odd sensation of not being able to get enough breath - but sort of like her breath was stuck. does note feeling fatigue over the last month -and easy fatiguability vitals noted nad heent nc at mmm breathing unlabored no accessory muscles good effort skin no rashes no pallor or icterus chest pressure/dyspnea -not MS - troponins negative -ddx ?early manifestations of COPD --> PFTs next week; ?exertional angina --> stress echo next week (safe to do as outpt - sx always go away w rest, pt feels safe with this as outpt, knows to return if sx occur and don't go away with a few minutes of rest); ?deconditioning (if PFTs normal, stress echo neg, then would assume deconditioning) is safe/stable for home counselled extensively on smoke cessation otherwise as above Resident Activity Tracking Resident Involvement: Resident Care Provided Care Provided: Adult Hospital Medicine
--- NOTE | 2020-04-04 16:44 | XCELERA ---
[id number]
--- NOTE | 2020-04-04 17:18 | Billing Data ---
Date of Service April 04, 2020 Coding Level of Care Code 69200 OBS Care - Discharge
[2020-04-04] MEDS ORDERED: BuPROPion SR 150 MG TABCR PO SCH (21:00)
[2020-04-04] MEDS ORDERED: PRAMIPEXOLE DIHYDROCHLO 0.25 MG TAB PO SCH (21:00)
[2020-04-05] MEDS ORDERED: PANTOprazole 40 MG TAB PO SCH (09:00)
--- NOTE | 2020-04-05 23:05 | Electrocardiogram Report ---
Test Reason : Blood Pressure : / mmHG Vent. Rate : 090 BPM Atrial Rate : 090 BPM P-R Int : 144 ms QRS Dur : 084 ms QT Int : 388 ms P-R-T Axes : 050 070 055 degrees QTc Int : 474 ms Poor data quality, interpretation may be adversely affected Normal sinus rhythm Nonspecific ST abnormality Abnormal ECG When compared with ECG of 25-MAY-2016 06:55, Questionable change in QRS axis T wave amplitude has increased in Anterior leads Confirmed by Francisco Wall ([id number]) on 04/05/2020 11:05:05 PM Referred By: REFERRED SELF Confirmed By:Francisco Wall
== END 2020-04-04 17:50 | disposition home or self-care (01) ==
LOC: 2E 22:28 → ED 22:28 → SUATTDRO 04-04 02:03 → 2E 04-04 02:41

== ENCOUNTER 2022-05-12 10:51 | Inpatient (IN) ==
--- NOTE | 2022-04-26 10:32 | PAT Medication Instructions ---
Medication Instructions Date of Service April 26, 2022 Home Medications Medication Instructions Recorded pramipexole 0.25 mg tablet 0.25 mg PO HS #90 tabs 08/26/21 (Mirapex) fluoxetine 20 mg capsule (Prozac) 20 mg PO BID #60 caps 11/02/21 bupropion HCl 150 mg tablet,12 hr 150 mg PO BID #60 ea 12/10/21 sustained-release gabapentin 300 mg capsule 300 mg PO TID #90 caps 12/25/21 [id number]-vbj-[id number] 0.4 mg-calcium 162 mg-iron 18 ad-xwzikec-ufcldh tablet 1 tab PO QAM cholecalciferol (vitamin D3) 25 mcg (1,000 unit) capsule 25 mcg PO HS omega-3 fatty acids [Fish Oil Concentrate] 1,000 mg PO QAM triamcinolone acetonide 0.1 % topical cream 1 applic topical QAM PRN Rash pramipexole 0.25 mg tablet (Mirapex) 0.25 mg PO HS fluoxetine 20 mg capsule (Prozac) 20 mg PO BID bupropion HCl 150 mg tablet,12 hr sustained-release 150 mg PO BID gabapentin 300 mg capsule 300 mg PO TID hydrocodone 5 mg-acetaminophen 325 mg tablet 1 tab PO Q12H PRN Pain hydrocortisone 2.5 % topical cream with perineal applicator (Anusol-HC) 1 applic MT UD PRN hemorrhoids lorazepam 0.5 mg tablet 0.25 - 0.5 mg PO UD PRN Anxiety pantoprazole 40 mg tablet,delayed release 40 mg PO Q2D Continue as directed pantoprazole 40 mg tablet,delayed release 40 mg PO Q2D STOP taking 2 weeks before surgery (or as soon as possible if surgery is within 2 weeks) [id number]-xyc-QD 0.4 mg-calcium 162 mg-iron 18 rg-tkqkbub-huazql tablet 1 tab PO QAM omega-3 fatty acids [Fish Oil Concentrate] 1,000 mg PO QAM STOP taking 24 hours before surgery triamcinolone acetonide 0.1 % topical cream 1 applic topical QAM PRN Rash DO NOT take the morning of surgery hydrocortisone 2.5 % topical cream with perineal applicator (Anusol-HC) 1 applic MT UD PRN hemorrhoids Take morning of surgery With a small sip of water, OTHERWISE NOTHING TO EAT OR DRINK AFTER MIDNIGHT: fluoxetine 20 mg capsule (Prozac) 20 mg PO BID bupropion HCl 150 mg tablet,12 hr sustained-release 150 mg PO BID gabapentin 300 mg capsule 300 mg PO TID hydrocodone 5 mg-acetaminophen 325 mg tablet 1 tab PO Q12H PRN Pain (if needed) lorazepam 0.5 mg tablet 0.25 - 0.5 mg PO UD PRN Anxiety (if needed) Take evening before surgery cholecalciferol (vitamin D3) 25 mcg (1,000 unit) capsule 25 mcg PO HS pramipexole 0.25 mg tablet (Mirapex) 0.25 mg PO HS fluoxetine 20 mg capsule (Prozac) 20 mg PO BID bupropion HCl 150 mg tablet,12 hr sustained-release 150 mg PO BID gabapentin 300 mg capsule 300 mg PO TID hydrocodone 5 mg-acetaminophen 325 mg tablet 1 tab PO Q12H PRN Pain (if needed) hydrocortisone 2.5 % topical cream with perineal applicator (Anusol-HC) 1 applic MT UD PRN hemorrhoids (if needed) lorazepam 0.5 mg tablet 0.25 - 0.5 mg PO UD PRN Anxiety (if needed) Other Notes If you have any questions please call us at [phone] or [phone] or [phone] or [phone]
--- NOTE | 2022-04-27 11:01 | Anesthesiology Consultation ---
Date of Service April 27, 2022 Assessment & Plan (1) Encounter for pre-operative examination: - Patient acceptable risk for surgery pending surgeon-ordered PCP preop evaluation ([facility]; scheduled 04/29) - COVID screening: Per assessment on 04/27: No known COVID-19 positive contacts. Travel screen negative. Pt has sore throat since 04/22 (has had similar intermittent episodes in the past r/t seasonal allergies). Covid test done at PAT visit 04/27 ([facility])- result was negative. Chart Review Chart Review: Patient seen in Pre Admission Testing Teaching & Discussion Pre-Anesthesia Teaching/Discussion Notes: Instructed NPO after midnight before surgery,except medications with 15 cc of water. Medication instructions provided according to the [facility] guidelines. History Surgery Operation Date: 05/12/22 07:45 Proposed Procedures p L4-L5 Decompression and Fusion, Possible L5-S1 Spinal Cord Monitoring - Paco Ding, Height/Weight Height: 5 ft 5 in Weight: 85.3 kg Allergies Allergy/AdvReac Type Severity Reaction Status Date / Time latex Allergy Mild Rash Verified 04/23/22 09:57 nickel Allergy Redness, Verified 04/26/22 12:32 skin irritation Medications Home Medications Medication Instructions Recorded Confirmed Last Taken [id number] 0.4 mg-calcium 162 1 tab PO QAM 02/12/19 04/23/22 04/03/20 mg-iron 18 po-[id number]-[id number] tablet cholecalciferol (vitamin D3) 25 25 mcg PO HS 05/27/21 04/23/22 Unknown mcg (1,000 unit) capsule omega-3 fatty acids [Fish Oil 1,000 mg PO QAM 05/27/21 04/23/22 Unknown Concentrate] triamcinolone acetonide 0.1 % 1 applic topical QAM PRN Rash 05/27/21 04/23/22 Unknown topical cream pramipexole 0.25 mg tablet 0.25 mg PO HS #90 tabs 08/26/21 04/23/22 Unknown (Mirapex) fluoxetine 20 mg capsule (Prozac) 20 mg PO BID #60 caps 11/02/21 04/23/22 Unknown bupropion HCl 150 mg tablet,12 hr 150 mg PO BID #60 ea 12/10/21 04/23/22 Unknown sustained-release gabapentin 300 mg capsule 300 mg PO TID #90 caps 12/25/21 04/23/22 Unknown hydrocortisone 2.5 % topical cream 1 applic [place] UD PRN hemorrhoids 04/23/22 04/23/22 Unknown with perineal applicator (Anusol-HC) lorazepam 0.5 mg tablet 0.25 - 0.5 mg PO UD PRN Anxiety 04/23/22 04/23/22 Unknown pantoprazole 40 mg tablet,delayed 40 mg PO Q2D 04/23/22 04/23/22 Unknown release hydrocodone 5 mg-acetaminophen 325 1 tab PO Q12H PRN Pain #11 tabs 04/28/22 U nknown mg tablet Past Medical History Medical History Adenocarcinoma, colon Dx 1995, s/p chemoradiation and partial colectomy Anxiety Cervical radiculopathy Right C6 Chronic low back pain Depression Dermatitis, dyshidrotic Chronic, intermittent (feet) Esophageal spasm Generalized osteoarthritis GERD (gastroesophageal reflux disease) History of COVID-19 Dx 07/2021, symptoms at time: sore throat, congestion, headache > resolved History of kidney stones History of peptic ulcer age 24 Hx of Clostridium difficile infection Several years ago Hx of seasonal allergies Hyperlipidemia Lumbar facet joint syndrome Lumbar radiculopathy Lumbar spinal stenosis Mild L4-5 Lumbar spondylosis Restless leg syndrome Sacroiliitis Sleep apnea "Mild"/no device Exercise / Class Metabolic Activity II 4-5 Yardwork/Stairs/Walk up hill (one FS (no CP, no SOB)) Past Family History Family History Father Acquired amyotrophic lateral sclerosis Family hx colonic polyps Mother Hypertension Grandmother (Maternal) Family history of diabetes mellitus Aunt Breast cancer Ovarian cancer maternal aunt Grandfather (Maternal) Myocardial infarction Other No family history of adverse response to anesthesia Denies family history of Prostate cancer Lung cancer Colorectal cancer Past Surgical History Surgical History History of colonoscopy with polypectomy History of colposcopy with cervical biopsy History of esophagogastroduodenoscopy (EGD) History of lithotripsy History of partial colectomy 1995 @ [facility] 10 inches removed History of right oophorectomy History of tooth extraction History of tubal ligation S/P epidural steroid injection Status post right foot surgery Past Anesthesia History No Hx of Anesthesia Complications and No Family Hx of Anesthesia Complications History of PONV No Hx of PONV and No Hx of Motion Sickness Social History Smoking Status: Current every day smoker tobacco type: cigarettes Smoking cigarettes per day: 10 cigs/day Do You Dip or Chew Tobacco: No Hx Alcohol Use: Yes Alcohol type: wine and hard liquor alcohol intake frequency: a few times a week Hx Substance Use: No substance use type: does not use Review of Systems Patient denies chest pain, shortness of breath, dyspnea on exertion, fever, chills, cough, wheezing, palpitations. Physical Exam Vital Signs VITALS BP 125/83 P 74 TEMP 98.5 SP02 94%RA RESP 18 PHYSICAL Full cervical extension range of motion. Full TMJ range of motion. TMD 3 finger breaths Mallampati Score 3 Dentition: several missing sides/molars, + caps (molars) Lungs: clear throughout to auscultation Cardiac: regular rate and rhythm, no murmurs noted Spine: normal Carotid arteries: negative bruit Extremities: no edema Lab Results Anesthesia Preop Results Results Anesthesia Widget: WBC 5.52 K/ul (4.8-10.8) 04/27/22 Hgb 13.1 g/dl (12.0-16.0) 04/27/22 Hct 39.3 % (34.1-44.9) 04/27/22 Plt 215 K/uL (130-400) 04/27/22 Na 139 mmol/L (136-145) 04/27/22 K 4.7 mmol/L (3.5-5.1) 04/27/22 Cl 106 mmol/L (98-107) 04/27/22 CO2 28 mmol/L (21-32) 04/27/22 BUN 16 mg/dl (6-23) 04/27/22 Creat 0.83 mg/dl (0.6-1.2) 04/27/22 Glucose Level 91 mg/dl (70-99(Fasting)) 04/27/22 PT 10.7 Seconds (9.0-12.0) 04/27/22 PTT 25.9 Seconds (21.0-31.0) 04/27/22 INR 1.0 (0.9-1.1) 04/27/22 Urine Color Yellow 04/27/22 Urine Appearance Clear (Clear) 04/27/22 Urine pH 5.5 (4.5-7.5) 04/27/22 Urine Specific [place] 1.018 (1.000-1.030) 04/27/22 Urine Protein Negative (Negative) 04/27/22 Urine Glucose (UA) Negative (Negative) 04/27/22 Urine Ketones Negative (Negative) 04/27/22 Urine Blood Negative (Negative) 04/27/22 Urine Nitrite Negative (Negative) 04/27/22 Urine Bilirubin Negative (Negative) 04/27/22 Urine Urobilinogen Negative (Negative) 04/27/22 Urine Leukocyte Esterase Negative (Negative) 04/27/22 Blood Type A Positive 04/27/22 Antibody Screen NEGATIVE 04/27/22 Testing Electrocardiogram Date: 04/27/22 NSR at 69bpm. NS TWA. Chest X-Ray Date: 04/27/22 FINDINGS: PA and lateral chest radiographs are compared to chest x-ray and chest CT dated 04/03/2020. The heart is enlarged. The pulmonary vasculature is noncongested. There is mild bibasilar atelectasis. The lungs and pleural spaces are otherwise clear. There is no pneumothorax. The skeletal structures are osteopenic. The bony thorax appears intact. IMPRESSION: Mild cardiomegaly with no active disease in the chest. Stress Test Date: 04/22/20 Type: exercise Normal stress echo. Stress ECG response was normal. Exercise capacity is below average. 100% MPHR. 5.7 METS. COVID-19 Risk Screen Screening Information COVID-19 Screen Date: 04/27/22 Exposure 21 Days Family/Household +COVID Last 21 Days: No Exposure 10 Days Any COVID Exposure Last 10 Days: No Symptoms Last 10 Days Experienced COVID Sx Last 10 Days: Yes Sx Experienced Last 10 Days: Sore Throat + COVID 0-90 Days COVID + in Last 0-90 Days: No
[~2022-05-12 10:51] MED LIST changes: +ACETAMINOPHEN 500 MG TAB PO SCH; +CeleBREX 200 MG CAP PO SCH; -FLUO20CA35 PO; +GABAPENTIN 600 MG DOSE PO SCH; +LR 15ML/HR IV SCH; -PRAM1TAB52 PO; -PRT40 PO; +SUGAMMADEX SODIUM 200 MG/2 ML VIAL IV ONE; -WLLSR150 PO; +ceFAZolin 2000MG 2,000 MG/15 ML SYR IV SCH
[2022-05-12] MEDS ORDERED: fentaNYL citrate 100 MCG/2 ML VIAL ONE (11:24)
[2022-05-12] MEDS ORDERED: ROCURONIUM BROMIDE 10 MG/ML 5 ML VIAL IV ONE (11:24)
[2022-05-12] MEDS ORDERED: ONDANSETRON INJ 2 MG/ML 2 ML VIAL ONE (11:24)
[2022-05-12] MEDS ORDERED: DEXAMETHASONE SOD INJ 4 MG/ML VIAL ONE (11:24)
[2022-05-12] MEDS ORDERED: PROPOFOL IV EMULSION 10 MG/ML 20 ML VIAL IV ONE (11:24)
[2022-05-12] MEDS ORDERED: NALOXONE HCL 0.4 MG/1 ML VIAL/CARP IV PRN ×2 (12:11→16:16)
[2022-05-12] MEDS ORDERED: ONDANSETRON INJ 2 MG/ML 2 ML VIAL IV PRN ×2 (12:11→16:16)
[2022-05-12] MEDS ORDERED: HYDROmorphone INJ 1 MG/ML SYRINGE IV PRN (12:11)
[2022-05-12] MEDS ORDERED: PROMETHAZINE HCL 12.5 MG in SODIUM CHLORIDE 0.9% 50 ML IV PRN ×2 (12:11→16:16)
[2022-05-12] MEDS ORDERED: LABETALOL HCL IV 5 MG/ML 20ML IV PRN (12:11)
[2022-05-12] MEDS ORDERED: ATROPINE SULFATE 0.1 MG/ML 10ML SYR IV PRN (12:11)
[2022-05-12] MEDS ORDERED: ePHEDrine sulfate 50 MG/ML AMP IV PRN (12:11)
[2022-05-12] MEDS ORDERED: FLUMAZENIL 0.1 MG/1 ML 10 ML VIAL IV PRN (12:11)
--- NOTE | 2022-05-12 12:24 | History & Physical Bridge Note ---
Date of Service May 12, 2022 History & Physical Bridge Note I have examined the patient, reviewed the History & Physical and in the interval since the performance of the History & Physical I have noted the following changes of clinical significance: no changes noted
--- NOTE | 2022-05-12 12:25 | History & Physical Report ---
Date of Service May 12, 2022 Assessment & Plan (1) Neurogenic claudication due to lumbar spinal stenosis: Plan: L4-L5 decompression and fusion, possible L5-S1 History of Present Illness Chief Complaint: Back and bilateral leg pain Primary Care Provider: Guevara Abrams MD This is a 66-year-old female who presents with chronic persistent back and bilateral leg pain. Failing course of nonoperative care she is here for surgical invention. Allergies Allergy/AdvReac Type Severity Reaction Status Date / Time latex Allergy Mild Rash Verified 05/12/22 11:17 nickel Allergy Redness, Verified 05/12/22 11:17 skin irritation Home Medications Medication Instructions Recorded Confirmed Type [id number] 0.4 mg-calcium 162 1 tab PO QAM 02/12/19 05/12/22 History mg-iron 18 mo-doqfhig-cbxjha tablet cholecalciferol (vitamin D3) 25 25 mcg PO HS 05/27/21 05/12/22 History mcg (1,000 unit) capsule omega-3 fatty acids [Fish Oil 1,000 mg PO QAM 05/27/21 05/12/22 History Concentrate] triamcinolone acetonide 0.1 % 1 applic topical QAM PRN Rash 05/27/21 05/12/22 History topical cream pramipexole 0.25 mg tablet 0.25 mg PO HS #90 tabs 08/26/21 05/12/22 Rx (Mirapex) fluoxetine 20 mg capsule (Prozac) 20 mg PO BID #60 caps 11/02/21 05/12/22 Rx bupropion HCl 150 mg tablet,12 hr 150 mg PO BID #60 ea 12/10/21 05/12/22 Rx sustained-release gabapentin 300 mg capsule 300 mg PO TID #90 caps 12/25/21 05/12/22 Rx hydrocortisone 2.5 % topical cream 1 applic [place] UD PRN hemorrhoids 04/23/22 05/12/22 History with perineal applicator (Anusol-HC) lorazepam 0.5 mg tablet 0.25 - 0.5 mg PO UD PRN Anxiety 04/23/22 05/12/22 History pantoprazole 40 mg tablet,delayed 40 mg PO Q2D 04/23/22 05/12/22 History release hydrocodone 5 mg-acetaminophen 325 1 tab PO Q12H PRN Pain #11 tabs 04/28/22 05/12/22 Rx mg tablet amoxicillin 875 mg-potassium 1 tab PO BID 7 days #14 tabs 04/29/22 04/29/22 Rx clavulanate 125 mg tablet Past Med/Surg History Medical History Adenocarcinoma, colon Dx 1995, s/p chemoradiation and partial colectomy Anxiety Cervical radiculopathy Right C6 Chronic low back pain Depression Dermatitis, dyshidrotic Chronic, intermittent (feet) Esophageal spasm Generalized osteoarthritis GERD (gastroesophageal reflux disease) History of COVID-19 Dx 07/2021, symptoms at time: sore throat, congestion, headache > resolved History of kidney stones History of peptic ulcer age 24 Hx of Clostridium difficile infection Several years ago Hx of seasonal allergies Hyperlipidemia Lumbar facet joint syndrome Lumbar radiculopathy Lumbar spinal stenosis Mild L4-5 Lumbar spondylosis Restless leg syndrome Sacroiliitis Sleep apnea "Mild"/no device Surgical History History of colonoscopy with polypectomy History of colposcopy with cervical biopsy History of esophagogastroduodenoscopy (EGD) History of lithotripsy History of partial colectomy 1995 @ [facility] 10 inches removed History of right oophorectomy History of tooth extraction History of tubal ligation S/P epidural steroid injection Status post right foot surgery Family History Father Acquired amyotrophic lateral sclerosis Family hx colonic polyps Mother Hypertension Grandmother (Maternal) Family history of diabetes mellitus Aunt Breast cancer Ovarian cancer maternal aunt Grandfather (Maternal) Myocardial infarction Other No family history of adverse response to anesthesia Denies family history of Prostate cancer Lung cancer Colorectal cancer Social History Smoking Status: Current every day smoker Age Started Using Tobacco: 20; packs per day: 0.5; Cigarettes Per Day: 5-8; Second Hand Exposure: Yes; Do You Dip or Chew Tobacco: No; Tobacco Cessation Education Requested by Patient: No Hx Alcohol Use: Yes Alcohol type: wine and hard liquor Alcohol Intake Frequency: 2-3 x/Week Hx Substance Use: No Preferred Language: Sami Communication Ability: Effective Visual Impairment: Limited Hearing Ability: Normal 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 Required: No Beliefs That Will Affect Care: None marital status: Current Living Situation: Spouse and Family Current Living Situation Comment: Lives with and daughter current occupational status: employed 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 How many Children do You have: 2 Other Information That Helps Us Care for You: No Feels Safe at Home: Yes Safety Concerns: Feels Safe At This Time Childhood Exposure to Second-Hand Smoke: No caffeine: Yes (1 cup of coffee daily ) Dental Care, Regularly: No Physical Activity Frequency: Does not Exercise Physical Activity Frequency Comment: 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
[2022-05-12] MEDS ORDERED: BUPIVACAINE/EPINEPHRINE 0.25% 1:200,000 30 ML VIAL ONE (12:35)
[2022-05-12] MEDS ORDERED: ceFAZolin 330 MG/ML 1 GM VIAL ONE (12:36)
[2022-05-12] MEDS ORDERED: FLOSEAL HEMOSTATIC MATRIX 10ML TOP ONE (13:52)
[2022-05-12] MEDS ORDERED: HYDROmorphone INJ 2 MG/ML SYR/VIAL ONE (14:47)
--- NOTE | 2022-05-12 14:58 | Operative Report ---
Post Operative Report Pre & Post Diagnosis Operation Date: 05/12/22 12:15 Pre-Op Diagnosis: Neurogenic Claudication due to Lumbar Spinal Stenosis Spondylolisthesis L4-L5 Post-Op Diagnosis: Same I identified the patient and participated in the time-out.: Yes Procedure Operation Date: 05/12/22 12:15 Actual Procedures #1 lumbar decompression bilateral medial facetectomies and foraminotomies L3-L4 L4-5. #2 posterior spinal fusion L4-5 #3 placement posterior instrumentation L4-5 per #4 interbody fusion L4-5 per #5 placement of Spira 13 x 26 mm L4-L5. #6 placement locally harvested morselized autograft in the posterior gutters. #7 placement I factor combined with V toss in the interbody space and posterior gutters. Surgeon Paco Ding, DO Refrigeration Person Krystyna Brandt Estimated Blood Loss 230 Findings See Below Patient is 5 foot 5 weighing over 84 kg with a BMI in excess of 31. Patient's body habitus did contribute to significant technical difficulties requiring her deepest retractors longus instruments in order to perform her procedure. This had at least 50% increased operative time. Specimens None Indications This is a 66-year-old female who presents above-mentioned diagnosis after failing course of nonoperative care is here for surgical invention. Description of Procedure Patient was met with identified informed consent obtained. Patient was then taken to the operative suite underwent a patient placed in a prone position on the Corwin table atop the Alvaro frame. All bony prominences well-padded eyes inspected to ensure no external pressure placed upon them. This point the lumbar spine was prepped and draped in normal sterile fashion. Sharp dissection with the assistance of Bovie cautery was performed down to and exposing the lamina and transverse processes of L4-L5. From caudal cephalad fashion complete laminectomy of L4 partial laminectomy of L3 was performed including bilateral medial facetectomies and foraminotomies addressing severe spinal stenosis. Pedicle screws were then placed at L4-5 bilaterally with assistance of fluoroscopy and appropriately sized mahsa placed. Bilateral transforaminal approach on the left pleat discectomy of L4-L5 was performed endplates curetted to subcortical bleeding bone and a 13 x 26 mm spiral cage with I factor tapped the position. The rods were then locked in final position bilaterally. The transverse processes of L4-L5 burred to subcortically bone. I factor model V toss and locally harvested morselized autograft was placed in the posterior gutters. 15 round ED drain inserted. Incision was then closed with 1 Vicryl the fascia 2-0 Vicryl subcutaneously and 4 Monocryl for final skin closure. Steri-Strip Steri-Strips placed. Patient waken taken to PACU in stable condition. Please note Krystyna Brandt was present out the entire procedure and while the patient positioning complex portions of the surgery and final skin closure. Lastly spinal cord monitoring was utilized at the procedure no changes noted. I attest to the content of the Intraoperative Record and any orders documented therein. Any exceptions are noted below.
[2022-05-12] MEDS: fentaNYL citrate 100 MCG/2 ML VIAL IV PRN ×2 (15:51→16:23)
--- NOTE | 2022-05-12 15:51 | Fluoroscopy Report ---
FL lumbar spine 2-3V CLINICAL HISTORY: L4-L5 DECOMPRESSION COMPARISON STUDY: Lumbar spine MRI August 15, 2019. FLUOROSCOPY TIME: 28 seconds. FLUOROSCOPIC IMAGES: 2 FINDINGS: Fluoroscopy was provided during L4-L5 discectomies with interbody spacer placement with pos terior decompression and bilateral pedicle screw fusion at this level. Hardware is intact. Curvilinea r densities projecting over the left aspect of the operative bed on AP projection are likely postsurg ical. IMPRESSION: Fluoroscopy provided during L4-L5 discectomy, posterior decompression and bilateral pedi erick screw fusion. ACT 112: Negative or not required by law. Electronically signed by: Serafin Singh M.D. 05/12/2022 3:49 PM
[2022-05-12] MEDS ORDERED: FAMOTIDINE 20 MG TAB PO PRN (16:16)
[2022-05-12] MEDS ORDERED: bisacodyL 10 MG SUPP PR PRN (16:16)
[2022-05-12] MEDS ORDERED: TRIAMCINOLONE ACET 0.1% CR 15 GM TUBE TOP PRN (16:16)
[2022-05-12] MEDS ORDERED: hydrOXYzine HCl 25 MG TAB PO PRN (16:16)
[2022-05-12] MEDS ORDERED: ALUMINUM/MAGNESIUM SUSP 30 ML UDC PO PRN (16:16)
[2022-05-12] MEDS ORDERED: METOCLOPRAMIDE HCL INJ 5 MG/ML 2 ML VIAL IV PRN (16:16)
[2022-05-12] MEDS ORDERED: HYDROmorphone INJ 0.5 MG/0.5 ML SYR IV PRN (16:16)
[2022-05-12] MEDS ORDERED: ACETAMINOPHEN 1,000 MG/100 ML VIAL IV PRN (16:16)
[2022-05-12] MEDS ORDERED: SOD PHOSPHATE/SOD BIPHOSPHATE ENEMA 132 ML BTL PR PRN (16:16)
[2022-05-12] MEDS ORDERED: traMADol HCL 50 MG TABLET PO PRN (16:16)
[2022-05-12] MEDS ORDERED: MAGNESIUM HYDROXIDE SUSP 30 ML UDC PO PRN (16:16)
[2022-05-12] MEDS ORDERED: ONDANSETRON 4 MG OD TAB PO PRN (16:16)
[2022-05-12] MEDS ORDERED: ACETAMINOPHEN 500 MG TAB PO PRN (16:16)
[2022-05-12] MEDS ORDERED: LORazepam 0.5 MG TAB PO PRN (16:16)
[2022-05-12] MEDS ORDERED: LORazepam 0.5 MG in SYRINGE 0 ML IV PRN (16:16)
[2022-05-12] MEDS ORDERED: diphenhydrAMINE Capsule 25 MG CAP PO PRN (16:16)
--- NOTE | 2022-05-12 16:24 | Anesthesiology Progress Note ---
Date of Service May 12, 2022 Anesthesia Post Procedure Vital Signs Vital Signs: Temp Pulse Resp BP Pulse Ox O2 Del Method O2 Flow Rate 05/12/22 16:15 62 15 127/72 98 Nasal Cannula 2 05/12/22 16:10 66 12 130/79 97 Nasal Cannula 2 05/12/22 15:30 69 10 L 139/82 100 Oxymask 5 05/12/22 16:00 36.7 C 71 10 L 137/77 96 Nasal Cannula 2 05/12/22 15:50 71 15 124/75 92 Room Air 05/12/22 15:40 66 9 L 140/86 99 Oxymask 5 05/12/22 15:20 72 12 151/84 H 100 Oxymask 5 05/12/22 15:11 36.4 C L 86 15 158/93 H 97 Oxymask 5 05/12/22 11:37 Room Air 05/12/22 11:26 36.9 C 72 20 134/85 96 Room Air Pain Intensity Lower Back: Pain Intensity: 5 Transfer of Care Handoff Completed per policy Notes Mental Status: alert / awake / arousable Patient Amnestic to Procedure: Yes Nausea / Vomiting: adequately controlled Pain: adequately controlled Airway Patency, RR, SpO2: stable & adequate BP & HR: stable & adequate Hydration State: stable & adequate Anesthetic Complications: no major complications apparent
[2022-05-12] MEDS: SODIUM CHLORIDE 0.9% 1000ML 1,000 ML IV SCH (17:59)
--- NOTE | 2022-05-12 18:01 | Hospitalist Consultation ---
Date of Consultation May 12, 2022 Assessment & Plan (1) Neurogenic claudication due to lumbar spinal stenosis: - POD #0. EBL 230 cc. No complications. ED drain inserted. - Pain/ABX/IVF/diet/drain management/transfusion needs/activity per primary team - Rescue Narcan ordered for over sedation PRN - VTE prophylaxis per primary service- SCDs in place - CBC and BMP in AM. - Baseline renal function: BUN 16, creatinine 0.83 on 04/27 - Baseline Hgb: 13.1 on 04/27 (2) Adult situational stress disorder: - Continue Wellbutrin, Prozac, and lorazepam as needed. (3) Hyperlipidemia: - Diet/lifestyle management. (4) Restless legs syndrome: - Continue pramipexole. (5) GERD (gastroesophageal reflux disease): - Continue Protonix. Plan - Thank you for involving us in the care of Josselyn Olivia. Please do not hesitate to call with questions or concerns. At this time medicine service will sign off. Supervising Physician Co-Signing Physician Notes Patient seen and examined, chart reviewed, case discussed with Shruthi Traylor PA-C and I agree with the assessment and plan as above except as otherwise noted Labs and images reviewed 66-year-old female history of hyperlipidemia, tobacco use, anxiety, spinal stenosis s/p spinal decompression fusion. Hemodynamically stable at bedside. No pain. Cap refill brisk in thumb and feet bilaterally. Numbness and tingling from her knee down on the left leg has resolved, sensation in left lower extremity remains diminished to soft touch. Otherwise feels well, no chest pain/chest pressure/dyspnea. Agree with recommendations above. History of Present Illness Reason for Consultation: post-op medical management Requesting Physician: Paco Ding DO Attending Physician: Paco Ding DO History of Present Illness Josselyn Olivia is a 66-year-old female with past medical history significant for hyperlipidemia, tobacco use disorder, anxiety, RLS, GERD, and distant history of colon cancer who was admitted today, 05/12 for a lumbar decompression and spinal fusion with Dr. Ding due to lumbar spinal stenosis. Hospitalist group was consulted for post-operative medication management. Today, she is POD#0 and feels well. Denies fever/chills, weakness, chest pain, palpitations, shortness of breath, cough, orthopnea, abdominal pain, nausea, vomiting. She has longstanding left leg numbness which is unchanged after surgery, however her left leg pain is not present. No weakness, numbness, or tingling in any extremities. Allergies Allergy/AdvReac Type Severity Reaction Status Date / Time latex Allergy Mild Rash Verified 05/12/22 11:17 nickel Allergy Redness, Verified 05/12/22 11:17 skin irritation Home Medications Medication Instructions Recorded Confirmed Type exphhzxf-jnr-JD 0.4 mg-calcium 162 1 tab PO QAM 02/12/19 05/12/22 History mg-iron 18 pg-dqtqobe-fzhous tablet cholecalciferol (vitamin D3) 25 25 mcg PO HS 05/27/21 05/12/22 History mcg (1,000 unit) capsule omega-3 fatty acids [Fish Oil 1,000 mg PO QAM 05/27/21 05/12/22 History Concentrate] triamcinolone acetonide 0.1 % 1 applic topical QAM PRN Rash 05/27/21 05/12/22 History topical cream pramipexole 0.25 mg tablet 0.25 mg PO HS #90 tabs 08/26/21 05/12/22 Rx (Mirapex) fluoxetine 20 mg capsule (Prozac) 20 mg PO BID #60 caps 11/02/21 05/12/22 Rx bupropion HCl 150 mg tablet,12 hr 150 mg PO BID #60 ea 12/10/21 05/12/22 Rx sustained-release gabapentin 300 mg capsule 300 mg PO TID #90 caps 12/25/21 05/12/22 Rx hydrocortisone 2.5 % topical cream 1 applic [place] UD PRN hemorrhoids 04/23/22 05/12/22 History with perineal applicator (Anusol-HC) lorazepam 0.5 mg tablet 0.25 - 0.5 mg PO UD PRN Anxiety 04/23/22 05/12/22 H istory pantoprazole 40 mg tablet,delayed 40 mg PO Q2D 04/23/22 05/12/22 History release hydrocodone 5 mg-acetaminophen 325 1 tab PO Q12H PRN Pain #11 tabs 04/28/22 05/12/22 Rx mg tablet amoxicillin 875 mg-potassium 1 tab PO BID 7 days #14 tabs 04/29/22 04/29/22 Rx clavulanate 125 mg tablet Patient History Medical History Adenocarcinoma, colon Dx 1995, s/p chemoradiation and partial colectomy Anxiety Cervical radiculopathy Right C6 Chronic low back pain Depression Dermatitis, dyshidrotic Chronic, intermittent (feet) Esophageal spasm Generalized osteoarthritis GERD (gastroesophageal reflux disease) History of COVID-19 Dx 07/2021, symptoms at time: sore throat, congestion, headache > resolved History of kidney stones History of peptic ulcer age 24 Hx of Clostridium difficile infection Several years ago Hx of seasonal allergies Hyperlipidemia Lumbar facet joint syndrome Lumbar radiculopathy Lumbar spinal stenosis Mild L4-5 Lumbar spondylosis Restless leg syndrome Sacroiliitis Sleep apnea "Mild"/no device Surgical History History of colonoscopy with polypectomy History of colposcopy with cervical biopsy History of esophagogastroduodenoscopy (EGD) History of lithotripsy History of partial colectomy 1995 @ [facility] 10 inches removed History of right oophorectomy History of tooth extraction History of tubal ligation S/P epidural steroid injection Status post right foot surgery Family History Father Acquired amyotrophic lateral sclerosis Family hx colonic polyps Mother Hypertension Grandmother (Maternal) Family history of diabetes mellitus Aunt Breast cancer Ovarian cancer maternal aunt Grandfather (Maternal) Myocardial infarction Other No family history of adverse response to anesthesia Denies family history of Prostate cancer Lung cancer Colorectal cancer Social History Smoking Status: Current every day smoker Age Started Using Tobacco: 20; packs per day: 0.5; Cigarettes Per Day: 5-8; Second Hand Exposure: Yes; Do You Dip or Chew Tobacco: No; Tobacco Cessation Education Requested by Patient: No Hx Alcohol Use: Yes Alcohol type: wine and hard liquor Alcohol Intake Frequency: 2-3 x/Week Hx Substance Use: No Preferred Language: Greek Communication Ability: Effective Visual Impairment: Limited Hearing Ability: Normal 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 Machine 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 Required: No Beliefs That Will Affect Care: None marital status: Current Living Situation: Spouse and Family Current Living Situation Comment: Lives with and daughter current occupational status: employed 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 [employer] How many Children do You have: 2 Other Information That Helps Us Care for You: No Feels Safe at Home: Yes Safety Concerns: Feels Safe At This Time Childhood Exposure to Second-Hand Smoke: No caffeine: Yes (1 cup of coffee daily ) Dental Care, Regularly: No Physical Activity Frequency: Does not Exercise Physical Activity Frequency Comment: 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 Seatbelt Use: always Sunscreen Use: Yes Assistive Devices: None Review of Systems Review of Systems: Constitutional: No fever/chills, weakness, fatigue, myalgias, anorexia, night sweats Eyes: No diplopia, no worsening or blurred vision ENT: normal hearing, no trouble swallowing Respiratory: No cough, sputum, dyspnea at rest or on exertion Cardiovascular: No chest pain, tightness or palpitations Abdomen: No pain, nausea, vomiting, diarrhea or constipation : Denies dysuria, hematuria, increased urgency/frequency, urinary retention Musculoskeletal: Left leg numbness, unchanged for several months; no joint pain, calf pain, swelling Neurologic: No weakness, numbness/tingling, or balance problems Psychiatric: No anxiety or depression Skin: No rash or itch Physical Exam Physical Exam: General: awake, alert, no apparent distress Head: Normocephalic, atraumatic ENT: PERRL, EOMI, no pharyngeal exudate, mucous membranes moist Chest: Clear to auscultation, on room air, no adventitious breath sounds Cardiac: Regular rate and rhythm, no murmur, no JVD, normal peripheral pulses, good capillary refill Abdominal: NABS x 4 quadrants, soft, nontender to palpation, no rebound, g uarding or tenderness Extremities: LLE with chronic, residual numbness not better or worse toda; otherwise normal inspection, no peripheral edema or erythema, calfs nontender to palpation Psych: Normal mood and affect Neuro: AAO x 3, strength intact bilaterally and rated 5/5, no motor deficits, speech is clear, no peripheral sensory deficits Skin: no rash or erythema Results & Data Results & Data ([facility]) Vital Signs (Past 12 Hours) Vital Signs Temp Pulse Resp BP Pulse Ox O2 Del Method O2 Flow Rate 05/12/22 17:11 36.7 C 64 16 120/73 97 Room Air 05/12/22 16:45 36.5 C 63 12 122/66 99 Nasal Cannula 2 05/12/22 16:15 62 15 127/72 98 Nasal Cannula 2 05/12/22 16:10 66 12 130/79 97 Nasal Cannula 2 05/12/22 15:30 69 10 L 139/82 100 Oxymask 5 05/12/22 16:00 36.7 C 71 10 L 137/77 96 Nasal Cannula 2 05/12/22 15:50 71 15 124/75 92 Room Air 05/12/22 15:40 66 9 L 140/86 99 Oxymask 5 05/12/22 15:20 72 12 151/84 H 100 Oxymask 5 05/12/22 15:11 36.4 C L 86 15 158/93 H 97 Oxymask 5 05/12/22 11:37 Room Air 05/12/22 11:26 36.9 C 72 20 134/85 96 Room Air Diagnostic Findings Lumbar Spine X-Ray 05/12/22 12:15 FL lumbar spine 2-3V CLINICAL HISTORY: L4-L5 DECOMPRESSION COMPARISON STUDY: Lumbar spine MRI August 15, 2019. FLUOROSCOPY TIME: 28 seconds. FLUOROSCOPIC IMAGES: 2 FINDINGS: Fluoroscopy was provided during L4-L5 discectomies with interbody spacer placement with posterior decompression and bilateral pedicle screw fusion at this level. Hardware is intact. Curvilinear densities projecting over the left aspect of the operative bed on AP projection are likely postsurgical. IMPRESSION: Fluoroscopy provided during L4-L5 discectomy, posterior decompression and bilateral pedicle screw fusion. ACT 112: Negative or not required by law. Electronically signed by: Serafin Singh M.D. 05/12/2022 3:49 PM PG Care Time/CCT Total # of Minutes Spent Total Time Spent with Patient: Total time spent is greater than 50% in coordination of care (as documented) at patient's floor/unit and/or counseling patient: Coding Level of Care Code 27679 Inpt Consult Level 3 Diagnoses Neurogenic claudication due to lumbar spinal stenosis M48.062 Adult situational stress disorder F43.20 Hyperlipidemia E78.5 Restless legs syndrome G25.81 GERD (gastroesophageal reflux disease) K21.9
[2022-05-12] MEDS: DOCUSATE SODIUM/SENNA 50/8.6MG TAB PO SCH (20:41)
[2022-05-12] MEDS: ceFAZolin 2000MG 2,000 MG/15 ML SYR IV SCH (20:42)
[2022-05-12] MEDS: buPROPion SR 150 MG TABCR PO SCH (20:42)
[2022-05-12] MEDS: GABAPENTIN 300 MG CAP PO SCH (20:44)
[2022-05-12] MEDS: CHOLECALCIFEROL 1,000 UNITS 25 MCG TAB PO SCH (20:44)
[2022-05-12] MEDS: FLUoxetine HCL 20 MG CAP PO SCH (20:45)
[2022-05-12] MEDS: PRAMIPEXOLE DIHYDROCHLO 0.25 MG TAB PO SCH (20:45)
[2022-05-12] MEDS: HYDROmorphone INJ 1 MG/ML SYRINGE IV PRN (20:46)
[2022-05-13] MEDS: SODIUM CHLORIDE 0.9% 1000ML 1,000 ML IV SCH (03:23)
[2022-05-13] MEDS: oxyCODONE HCL IR 5 MG TAB (IMMEDIATE RELEASE) PO PRN ×3 (03:25→19:53)
[2022-05-13] MEDS: ceFAZolin 2000MG 2,000 MG/15 ML SYR IV SCH (05:28)
[2022-05-13] MEDS: POLYETHYLENE (MIRALAX) 17 GM PACK PO SCH ×4 (05:28→23:02)
[2022-05-13 05:54] LABS: Basophils # (auto) 0.01 K/uL (0-0.2); Basophils % (auto) 0.1 %; Eosinophils # (auto) 0.02 K/uL (0-0.50); Eosinophils % (auto) 0.2 %; Hematocrit (blood only) 32.3 % (34.1-44.9); Hemoglobin 10.8 g/dl (12.0-16.0); Immature Granulocytes # (auto) 0.03 K/uL (0.00-0.02); Immature Granulocytes % (auto) 0.3 %; Lymphocytes # (auto) 1.21 K/uL (1.2-3.4); Lymphocytes % (auto) 13.2 %; Mean Corpuscular Hemoglobin 30.9 pg (25.0-34.0); Mean Corpuscular Hgb Conc 33.4 g/dL (32.0-36.0); Mean Corpuscular Volume 92.6 fL (80.0-100.0); Mean Platelet Volume 9.6 fL (9.4-12.3); Monocytes # (auto) 0.66 K/uL (0.24-0.82); Monocytes % (auto) 7.2 %; Neutrophils # (auto) 7.25 K/uL (1.4-6.5); Platelet Count 232 K/uL (130-400); RDW Coefficient of Variation 12.5 % (11.5-14.5); Red Blood Count 3.49 M/uL (3.93-5.22); White Blood Count 9.18 K/ul (4.8-10.8)
[2022-05-13 06:17] LABS: BUN Creatinine Ratio 16.7 (10-20); Calcium 8.3 mg/dl (8.5-10.1); Creatinine Clr Calc Pharmacy 84.8 ml/min; Est GFR (African American) 102.6 ml/min; Est GFR (Non-African American) 88.5 ml/min; Potassium 4.3 mmol/L (3.5-5.1)
[2022-05-13] MEDS: MULTIVITAMIN TAB PO SCH (08:13)
[2022-05-13] MEDS: buPROPion SR 150 MG TABCR PO SCH ×2 (08:14→20:03)
[2022-05-13] MEDS: FLUoxetine HCL 20 MG CAP PO SCH ×2 (08:14→20:02)
[2022-05-13] MEDS: GABAPENTIN 300 MG CAP PO SCH ×3 (08:14→20:02)
--- NOTE | 2022-05-13 08:44 | Orthopedic Progress Note ---
Date of Service May 13, 2022 Assessment & Plan (1) Acute blood loss as cause of postoperative anemia: Plan: Patient status post decompression fusion. He has good progress. We will plan for physical therapy today monitor ED operatively discharge home Tuesday or . Admission and Anticipated Discharge Date Admission Date: May 12, 2022 Subjective Back pain controlled leg pain markedly improved Physical Exam Physical Exam: Patient is calm compared to testing. Results & Data ([facility]) Vital Signs (Past 12 Hours) Vital Signs Temp Pulse Resp BP Pulse Ox O2 Del Method 05/13/22 07:42 37.1 C 67 16 113/72 94 05/13/22 03:00 36.7 C 66 18 102/83 97 Room Air 05/12/22 23:00 37.2 C 62 18 107/66 91 Room Air
[2022-05-13] MEDS: dexAMETHasone 6 MG in SYRINGE 0 ML IV SCH (10:33)
[2022-05-13] MEDS: CHOLECALCIFEROL 1,000 UNITS 25 MCG TAB PO SCH (20:02)
[2022-05-13] MEDS: DOCUSATE SODIUM/SENNA 50/8.6MG TAB PO SCH (20:02)
[2022-05-13] MEDS: PRAMIPEXOLE DIHYDROCHLO 0.25 MG TAB PO SCH (20:03)
[2022-05-14] MEDS: POLYETHYLENE (MIRALAX) 17 GM PACK PO SCH ×4 (05:44→23:31)
[2022-05-14] MEDS: HYDROmorphone INJ 1 MG/ML SYRINGE IV PRN (05:59)
[2022-05-14] MEDS: dexAMETHasone 6 MG in SYRINGE 0 ML IV SCH (08:47)
[2022-05-14] MEDS: buPROPion SR 150 MG TABCR PO SCH ×2 (08:48→20:10)
[2022-05-14] MEDS: FLUoxetine HCL 20 MG CAP PO SCH ×2 (08:48→20:15)
[2022-05-14] MEDS: MULTIVITAMIN TAB PO SCH (08:48)
[2022-05-14] MEDS: GABAPENTIN 300 MG CAP PO SCH ×3 (08:48→20:14)
[2022-05-14] MEDS ORDERED: PANTOprazole 40 MG TAB PO SCH (09:00)
--- NOTE | 2022-05-14 10:01 | Orthopedic Progress Note ---
Date of Service May 14, 2022 Assessment & Plan (1) Neurogenic claudication due to lumbar spinal stenosis: Plan: At this time continue physical therapy monitor ED output anticipate discharge home tomorrow. Admission and Anticipated Discharge Date Admission Date: May 12, 2022 Subjective Back pain controlled leg pain markedly improved Physical Exam Physical Exam: Patient is comfortable. She is constricted testing. Results & Data ([facility]) Vital Signs (Past 12 Hours) Vital Signs Temp Pulse Resp BP Pulse Ox O2 Del Method 05/14/22 07:38 36.8 C 59 L 16 135/84 93 Room Air
[2022-05-14] MEDS: oxyCODONE HCL IR 5 MG TAB (IMMEDIATE RELEASE) PO PRN ×2 (12:13→20:09)
[2022-05-14] MEDS: DOCUSATE SODIUM/SENNA 50/8.6MG TAB PO SCH (20:10)
[2022-05-14] MEDS: CHOLECALCIFEROL 1,000 UNITS 25 MCG TAB PO SCH (20:11)
[2022-05-14] MEDS: PRAMIPEXOLE DIHYDROCHLO 0.25 MG TAB PO SCH (20:14)
[2022-05-15] MEDS: POLYETHYLENE (MIRALAX) 17 GM PACK PO SCH (05:00)
[2022-05-15] MEDS: oxyCODONE HCL IR 5 MG TAB (IMMEDIATE RELEASE) PO PRN (06:27)
--- NOTE | 2022-05-15 08:19 | Discharge Summary ---
Date of Service May 15, 2022 Principal Diagnosis Lumbar spinal stenosis with spondylolisthesis and neurogenic claudication Discharge Data Allergies Allergy/AdvReac Type Severity Reaction Status Date / Time latex Allergy Mild Rash Verified 05/12/22 11:17 nickel Allergy Redness, Verified 05/12/22 11:17 skin irritation Consultations 05/12/22 17:36 Consult Hospitalist Routine Procedures Performed Operation Date: 05/12/22 12:15 Actual Procedures p 1 lumbar decompression bilateral medial facetectomies and foraminotomies L3-L4 L4-5. #2 posterior spinal fusion L4-5 #3 placement posterior instrumentation L4-5 per #4 interbody fusion L4-5 per #5 placement of Spira 13 x 26 mm L4-L5. #6 placement locally harvested morselized autograft in the posterior gutters. #7 placement I factor combined with V toss in the interbody space and posterior gutters(Not Applicable) - Paco Ding DO Ordered Studies 05/12/22 12:15 FL lumbar spine 2-3V Routine Hospital Course (1) Neurogenic claudication due to lumbar spinal stenosis: Patient with lumbar decompression fusion tolerated this well was taken to the orthopedic floor postoperative. Postop day 1 she was up and ambulating leg pain improved. She progressed to postop day #2 and #3. ED drain decreased probably. Excellent strength testing. Pain well controlled. Subsequently discharged home. Discharge orders instructions from the chart for further review. Total Time Total Time Spent Total Time Spent (In Minutes): 20 minutes Discharge Plan Discharge Items Patient Disposition: Home - Self-Care Reason For Visit: Spinal Stenosis Lumbar Region with Neurogenic Discharge Diagnosis: Lumbar spinal stenosis with neurogenic claudication Activity: As commented below Non-emergency contact: Primary Care Provider Call non-emergency contact if: you have any medication questions Follow-up/Referrals: Guevara Abrams MD [Primary Care Provider] - Diet: Regular Addtl Attending Provider Instructions: ACTIVITY RECOMMENDATIONS: SELF CARE INSTRUCTIONS AFTER THORACIC/LUMBAR FUSIONS 1. You may walk to your tolerance. It is good exercise for your legs and back. Expect some back and intermittent leg aches and pains. 2. You may perform "counter-top" level activities (make a sandwich, doris with a project, etc.). 3. No bending or lifting of more than 10 pounds or back twisting of any nature (roll like a log when turning in bed). 4. You may ride in a car for 20-30 minutes at a time. No driving until after your first visit with your doctor. 5. Frequent changes of position and restricting sitting to 30 minutes at a time will help limit the amount of back spasms and stiffness you may experience. 6. You may discontinue the use of ambulatory aids (cane, crutches, etc.) once your strength and confidence allow. 7. You may orchid superintendent the shower and let water strike your incision when you arrive home at least once daily. Do not take a tub bath, sit in a hot tub or go into a swimming pool until after your first recheck in the office. SPECIAL CARE INSTRUCTIONS: VERY IMPORTANT TO READ AND REVIEW A. Your surgical incision has been closed with a cosmetic suture under the skin that will dissolve in about 6 weeks. In 14 days, you can use a pair of clean scissors and cut the suture that is left outside of the skin at the ends of your incision. 1. The small skin tapes can be removed 7 days after surgery if they have not fallen off by that point. 2. You may keep the wound open to air as much as possible to promote healing after post-op day number 5 unless told otherwise by your doctor. 3. If you think the wound looks like it is becoming infected (redness or worsening drainage) and/or you are experiencing fever, chill or worsening back pain and muscle spasms, contact the office so that we may evaluate you as soon as possible. B. Complications are uncommon, but please contact us if you have any signs or symptoms of: 1. wound infection (fever higher than 102.5 degrees F, redness, separation of wound, drainage, or increasing pain from the incision) 2. blood clots in legs (pain, swelling, redness and warmth in legs) 3. urinary tract infection (fever higher than 102.5 degrees F, burning upon urination or increased frequency of urination) 4. nerve problems (inability to walk on your toes or heels, numbness, loss of bowel or bladder control) 5. any other symptoms that concern you C. Please call the office at if you have any concerns or questions about your operation or recovery. D. No smoking! Smoking drastically decreases the chance of a solid fusion. E. Do not take any anti-inflammatory medications (Indocin, Advil, Motrin, Aspirin, Naprosyn, etc.) as these may inhibit the chance of a solid fusion. Tylenol is okay to take for pain. MANAGING PAIN AFTER SPINAL SURGERY 1. Narcotic medication is intended for short-term use and will be provided for surgical pain. Surgical pain usually lasts for a period of 4-6 weeks. Narcotic medication includes Percocet, Vicodin, Darvocet, Tylenol #3 or Lortab. 2. Longer-term pain is more appropriately treated with non-narcotic medication such as Tylenol ES. 3. Muscle spasm is not appropriately treated with narcotics. Muscle relaxers such as Soma, Flexeril or Skelaxin can be used along with Tylenol ES. 4. Remember that we all live with some "aches and pains". This is not unusual or uncommon after an injury or as we get older. a. Back pain is expected and may include muscle spasms for 4 to 6 weeks after surgery. The pain should gradually improve. If the pain worsens for no apparent reason, please contact the office. b. Intermittent leg pain may also be experienced and should not be concerned about unless it worsens for no apparent reason. If so, please contact the office. 5. We will provide appropriate medication within the normal guidelines of their prescribed use. We will also be very cautious and aware of potential abuse and extended duration of patients' medication needs. a. Pain medications are for your comfort and to assist with sleep and rest so that the tissue can heal. They are not provided in order to return to normal activity and should not be used through the day. To do so or worsening pain at night can result from ongoing tissue damage and development of tolerance to the prescribed medicine. 6. Please allow 2-3 days to process refills. Prescriptions will not be mailed but must be picked up at the office. FOLLOW UP VISIT: Keep your scheduled follow-up appointment. Any questions, please call the office at . Pending Studies at Discharge: No Stand-Alone Forms: My Countdown, Smoking Cessation Medications and DC Order Prescriptions: New tramadol 50 mg tablet 50 mg PO Q6H PRN (Reason: pain, moderate) Qty: 30 0RF oxycodone 5 mg tablet 5 mg PO Q6H PRN (Reason: pain, severe) Qty: 30 0RF Continued pramipexole [Mirapex] 0.25 mg tablet 0.25 mg PO HS Qty: 90 3RF fluoxetine [Prozac] 20 mg capsule 20 mg PO BID Qty: 60 5RF bupropion HCl 150 mg tablet sustained-release 12 hr 150 mg PO BID Qty: 60 5RF gabapentin 300 mg capsule 300 mg PO TID Qty: 90 3RF hydrocodone-acetaminophen 5-325 mg tablet 1 tab PO Q12H PRN (Reason: Pain) Qty: 11 0RF cholecalciferol (vitamin D3) 25 mcg (1,000 unit) capsule 25 mcg PO HS amoxicillin-pot clavulanate 875-125 mg tablet 1 tab PO BID 7 Days Qty: 14 0RF omega-3 fatty acids 1,000 mg PO QAM pk-yjh-FB-Sf-Dh-lufhokt-lutein 0.4-162-18 mg tablet 1 tab PO QAM triamcinolone acetonide 0.1 % cream 1 applic TOP QAM PRN (Reason: Rash) hydrocortisone [Anusol-HC] 2.5 % cream with perineal applicator 1 applic MA UD PRN (Reason: hemorrhoids) lorazepam 0.5 mg tablet 0.25 - 0.5 mg PO UD PRN (Reason: Anxiety) pantoprazole 40 mg tablet,delayed release (DR/EC) 40 mg PO Q2D Discharge Orders: Discharge Order (Routine); Ordered 05/15/22 Ordered By: Paco Ding Admission Data Admit Date/Time: 05/12/22 15:02 Attending Provider: Paco Ding Admit Provider: Paco Ding Primary Care Provider: Guevara Abrams Other Providers: Guevara Lind
[2022-05-15] MEDS: dexAMETHasone 6 MG in SYRINGE 0 ML IV SCH (08:22)
[2022-05-15] MEDS: MULTIVITAMIN TAB PO SCH (08:22)
[2022-05-15] MEDS: FLUoxetine HCL 20 MG CAP PO SCH (08:22)
[2022-05-15] MEDS: GABAPENTIN 300 MG CAP PO SCH (08:22)
[2022-05-15] MEDS: buPROPion SR 150 MG TABCR PO SCH (08:23)
== END 2022-05-15 10:06 | disposition home or self-care (01) | DRG 454 ==
LOC: ASU 10:51 → PACUINP 15:02 → 3N 17:17
DX: M43.16 Spondylolisthesis, lumbar region; F17.210 Nicotine dependence, cigarettes, uncomplicated; E66.9 Obesity, unspecified; Z68.31 Body mass index [BMI] 31.0-31.9, adult; F68.8 Other specified disorders of adult personality and behavior; G25.81 Restless legs syndrome; Z85.038 Personal history of other malignant neoplasm of large intestine; Z86.16 Personal history of COVID-19; D62 Acute posthemorrhagic anemia; M48.062 Spinal stenosis, lumbar region with neurogenic claudication; Z83.3 Family history of diabetes mellitus; K21.9 Gastro-esophageal reflux disease without esophagitis; Z91.040 Latex allergy status